=== PATIENT | male | born 1950 | race Caucasian/White ===

== ENCOUNTER 2019-03-26 10:44 | Inpatient (IN) ==
[2019-03-26 11:22] LABS: Basophils # (auto) 0.03 K/uL (0-0.2); Basophils % (auto) 0.4 %; Eosinophils % (auto) 4.9 %; Hematocrit (blood only) 46.2 % (42-52); Hemoglobin 15.7 g/dL (14.0-18.0); Immature Granulocytes # (auto) 0.01 K/uL (0.00-0.02); Immature Granulocytes % (auto) 0.1 %; Lymphocytes % (auto) 17.1 %; Mean Corpuscular Hemoglobin 33.8 pg (25-34); Mean Corpuscular Volume 99.4 fL (80-100); Mean Platelet Volume 10.5 fL (7.4-10.4); Monocytes # (auto) 0.88 K/uL (0.11-0.59); Monocytes % (auto) 10.7 %; Neutrophils # (auto) 5.48 K/uL (1.4-6.5); Neutrophils % (auto) 66.8 %; Platelet Count 216 K/uL (130-400); RDW Coefficient of Variation 13.2 % (11.5-14.5); RDW Standard Deviation 47.6 fL (36.4-46.3); Red Blood Count 4.65 M/uL (4.7-6.1)
[2019-03-26 11:29] LABS: Alanine Aminotransferase 25 U/L (12-78); Albumin Level 3.9 gm/dl (3.4-5.0); Aspartate Aminotransferase 17 U/L (15-37); BUN Creatinine Ratio 14.2 (10-20); Blood Urea Nitrogen 21 mg/dl (7-18); Calcium 9.7 mg/dl (8.5-10.1); Carbon Dioxide 27 mmol/L (21-32); Chloride 106 mmol/L (98-107); Est GFR (African American) 56.6; Est GFR (Non-African American) 48.9; Glucose 78 mg/dl (70-99); Lipase 199 U/L (73-393); Potassium 4.3 mmol/L (3.5-5.1); Sodium 140 mmol/L (136-145)
[2019-03-26 11:34] LABS: Alkaline Phosphatase 69 U/L (45-117); Bilirubin,Total 0.6 mg/dl (0.2-1); Globulin 3.9 gm/dl (2.5-4.0); Total Protein 7.8 gm/dl (6.4-8.2); Troponin I < 0.015 ng/ml (0-0.045)
--- NOTE | 2019-03-26 12:23 | XRay Report ---
SINGLE VIEW CHEST CLINICAL HISTORY: Atypical chest pain. FINDINGS: An AP, portable, upright chest radiograph is compared to study dated 10/07/2017. The examina tion is degraded by portable technique and patient rotation. The heart is enlarged noting atheroscler otic calcification of the thoracic aorta. The pulmonary vasculature is noncongested. There is mild el evation of the right hemidiaphragm and bibasilar atelectasis. No airspace consolidation or large pleu ral effusion is identified. No pneumothorax is seen. The skeletal structures are osteopenic. The bony thorax is grossly intact. Atherosclerotic calcification is noted in the carotid bulbs. IMPRESSION: Cardiomegaly with no acute cardiopulmonary abnormality. Electronically signed by: Aguilar Morse M.D. 03/26/2019 12:22 PM
--- NOTE | 2019-03-26 13:54 | History & Physical Report ---
Date of Service March 26, 2019 Assessment & Plan (1) Atrial fibrillation: Admit to PCU on telemetry Vital signs every 4 hours Started heparin drip with bolus for [place] jar[place]'s Patient should be switched if his insurance covers to apixaban or warfarin if it does not. Patient is covered by [place]. Metoprolol succinate increased to 25 daily instead of 12.5 for better angulation of [place]'s TTE pending Consult cardiology Added aspirin 81 mg to patient current regimen. 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 Started Solu-Medrol 30 twice daily IV and taper down Doxycycline 500 mg p.o. twice daily for 10 days Duo nebs every 4 hours while awake Symbicort 2 puffs twice a day Patient was advised to stop smoking given nicotine patch. Present on Admission?: Yes (3) HTN (hypertension): Stable. Continue home medicine amlodipine 10 mg p.o. every morning, lisinopril 20 mg p.o. every morning, metoprolol succinate 25 mg daily Present on Admission?: Yes (4) Hyperlipidemia: Lipid panel pending, continue atorvastatin 20 mg p.o. nightly. Present on Admission?: Yes (5) COPD exacerbation: Duo nebs every 4 Symbicort 2 puffs twice daily Solu-Medrol 30 mg IV twice daily Advised to stop smoking Given nicotine patch Present on Admission?: Yes (6) Peripheral vascular disease: Continue home medication cilostazol 100 mg p.o. twice daily. Present on Admission?: Yes (7) BPH (benign prostatic hyperplasia): Continue tamsulosin 0.4 mg capsule p.o. nightly. Present on Admission?: Yes (8) Discharge planning issues: Home when clinically improved and after cardiology recommendations. Patient will need help with anticoagulation medication and possibly follow-up. Present on Admission?: Yes History of Present Illness Chief Complaint: Shortness of breath and palpitations Primary Care Provider: Lauren Mcdonald Patient is a 68 years old male with past medical history of hypertension, hypercholesterolemia peripheral vascular disease, status post aortic bypass surgery 3 years ago and benign prostatic hypertrophy, smoker 1 pack/day for 50 years, presents to the emergency room with a complaint of shortness of breath for 2 to 3 days and palpitations. Patient said nothing helped it. He takes his medication regularly. He recently started to cough but it is not productive. He admits having wheezes. Patient denies fever, chills, headache, chest pain, abdominal pain, frequency, urgency, syncope, near syncope. Labs are reviewed: WBC is 8.2, hemoglobin 15.7, hematocrit 46.2, platelets 216, PT 10.9, INR 1.1, APTT 28, sodium 140, potassium 4.3, chloride 106, BUN 21, creatinine 1.44, GFR 48.9, troponin 0 0.015, TSH pending BNP pending. Chest x-rays cardiomegaly with acute pulmonary abnormality. Bibasilar atelectasis. Decision was made to admit patient to PCU for new onset of A. fib's and COPD exacerbation. Allergies Allergy/AdvReac Type Severity Reaction Status Date / Time No Known Allergies Allergy Unverified 03/26/19 11:38 Home Medications Home Medications Medication Instructions Recorded Confirmed Type amlodipine 10 mg tablet 10 mg PO QAM 01/04/18 03/26/19 History atorvastatin 40 mg tablet 20 mg PO QAM 01/04/18 03/26/19 History lisinopril 20 mg tablet 20 mg PO QAM 01/04/18 03/26/19 History metoprolol succinate 25 mg capsule 12.5 mg PO BID 01/04/18 03/26/19 History sprinkle, ext. release 24 hr tamsulosin 0.4 mg capsule 0.4 mg PO HS 01/04/18 03/26/19 History cilostazol 100 mg PO BID 09/02/18 03/26/19 History naproxen sodium [Aleve] 220 mg PO Q12H PRN 09/02/18 03/26/19 History Past Med/Surg History Medical History Heart disease (Chronic) HTN (hypertension) (Chronic) Skin problem (Chronic) Surgical History S/P appendectomy (Chronic) Social History Feels Safe at Home: Yes Smoking Status: Current every day smoker Review of Systems Review of Systems: All systems reviewed & are unremarkable except as noted in HPI & below Physical Exam Constitutional: WD/WN, vitals as above well developed Eyes: PERRL, conjunctivae normal, anicteric sclerae ENMT: external ear and nose normal, oropharynx normal Neck: trachea midline, no thyromegaly Respiratory: Auscultation: + crackles and + wheezes Cardiovascular: Rate/Rhythm: + irregularly irregular Heart Sounds: normal S1 and normal S2 Chest (Breasts): normal inspection/palpation of breasts Gastrointestinal (Abdomen): normal bowel sounds, soft, nontender, no hepatosplenomegaly Musculoskeletal: no cyanosis or clubbing, extremities motor strength 5/5 Skin: no rashes, warm and dry Neurologic: patellar DTR's 2+ bilat, sensation intact Psychiatric: A+Ox3, euthymic affect Lymphatic: no cervical or axillary lymphadenopathy Results & Data Vital Signs (Past 12 Hours) Vital Signs Temp Pulse Pulse Resp BP BP Pulse Ox 03/26/19 13:01 81 24 95 03/26/19 13:00 85 20 166/101 H 94 03/26/19 12:42 78 16 155/107 H 93 03/26/19 12:31 88 18 155/107 H 96 03/26/19 12:30 73 20 92 03/26/19 12:01 79 19 93 03/26/19 12:00 83 21 143/97 H 94 03/26/19 11:59 70 20 141/82 H 94 03/26/19 11:30 94 H 18 03/26/19 11:00 77 26 H 97 03/26/19 10:51 78 22 03/26/19 10:50 91 H 20 164/103 H 96 03/26/19 10:48 36.7 C 80 16 164/103 H 94 Code Status & VTE Plan Code Status Full code VTE Prophylaxis Plan VTE Prophylaxis will be ordered: Yes PG Care Time/CCT Total # of Minutes Spent Total Time Spent with Patient: Total time spent is greater than 50% in coordination of care (as documented) at patient's floor/unit and/or counseling patient:
--- NOTE | 2019-03-26 14:45 | Emergency Department Note ---
Entered by Precious Reddy acting as a scribe for History of Present Illness General Chief complaint: Cardiac Assessment Source: patient Mode of arrival: ambulatory Limitations: no limitations History of Present Illness Onset (ago): day(s) 1 Location: chest Radiation: non-radiation Pain Consistency: + constant Relieved By: + none Exacerbated By: + none Associated symptoms: + other (+swelling in the legs, -hematuria, -hematochezia, -melena); no chest pain, no nausea/vomiting and no shortness of breath Treatments prior to arrival: none The patient is a 68 year old male who presents to the ED with complaints of needing a cardiac assessment. He states he went [facility] for a regular check-up this morning and was referred here to the ED for an irregular heart beat and shortness and breath. He denies any recent chest pain, nausea, vomiting or diarrhea. He admits to swelling in his legs but states this is chronic. He does not take daily blood thinners. He denies any recent hematuria, hematochezia or melena. He notes that his shortness of breath has been worsening with exertion and the confirms this. He initially said that this is not the nathalia e but on repeat conversation notes that he has to stop even walking up small hills. Rest improves this. He notes that he is unsure of the timeframe for which this has occurred. No other exacerbating or remitting factors. Home Medications Home Medications Medication Instructions Recorded Confirmed Type amlodipine 10 mg tablet 10 mg PO QAM 01/04/18 03/26/19 History atorvastatin 40 mg tablet 20 mg PO QAM 01/04/18 03/26/19 History lisinopril 20 mg tablet 20 mg PO QAM 01/04/18 03/26/19 History metoprolol succinate 25 mg capsule 12.5 mg PO BID 01/04/18 03/26/19 History sprinkle, ext. release 24 hr tamsulosin 0.4 mg capsule 0.4 mg PO HS 01/04/18 03/26/19 History cilostazol 100 mg PO BID 09/02/18 03/26/19 History naproxen sodium [Aleve] 220 mg PO Q12H PRN 09/02/18 03/26/19 History Allergies Allergy/AdvReac Type Severity Reaction Status Date / Time No Known Allergies Allergy Unverified 03/26/19 11:38 Past Med/Surg History Medical History Heart disease (Chronic) HTN (hypertension) (Chronic) Skin problem (Chronic) Surgical History S/P appendectomy (Chronic) Social History Feels Safe at Home: Yes Smoking Status: Current every day smoker Review of Systems See HPI for pertinent positives & negatives. and A total of 10 systems reviewed and were otherwise negative Physical Exam Vital Signs Vital Signs - 24 hr 03/26/19 10:48 03/26/19 10:50 03/26/19 10:51 Temperature 36.7 C Temperature Source Oral Pulse Rate 80 91 H 78 Pulse Rate [Apical] Pulse Rate from SpO2 Sensor Pulse Rhythm Regular Pulse Strength Normal Respiratory Rate 16 20 22 Respiratory Effort / Characteristics Non-Labored Spontaneous Respiratory Depth Normal Respiratory Pattern Regular Blood Pressure 164/103 H 164/103 H Blood Pressure [Right Arm] Blood Pressure Mean 123 110 Blood Pressure Mean [Right Arm] Blood Pressure Position Lying Pulse Oximetry 94 96 Oxygen Delivery Method Room Air Room Air Sepsis Recent Fever Within 48 Hours No Sepsis New/Unexplained Change in Mental Status No Sepsis Action Taken by Nursing No Action Required 03/26/19 11:00 03/26/19 11:30 03/26/19 11:59 Temperature Temperature Source Pulse Rate 77 94 H 70 Pulse Rate [Apical] Pulse Rate from SpO2 Sensor 81 Pulse Rhythm Pulse Strength Respiratory Rate 26 H 18 20 Respiratory Effort / Characteristics Respiratory Depth Respiratory Pattern Blood Pressure 141/82 H Blood Pressure [Right Arm] Blood Pressure Mean 91 Blood Pressure Mean [Right Arm] Blood Pressure Position Pulse Oximetry 97 94 Oxygen Delivery Method Room Air Room Air Sepsis Recent Fever Within 48 Hours Sepsis New/Unexplained Change in Mental Status Sepsis Action Taken by Nursing 03/26/19 12:00 03/26/19 12:01 03/26/19 12:30 Temperature Temperature Source Pulse Rate 83 79 73 Pulse Rate [Apical] Pulse Rate from SpO2 Sensor 85 76 91 H Pulse Rhythm Pulse Strength Respiratory Rate 21 19 20 Respiratory Effort / Characteristics Respiratory Depth Respiratory Pattern Blood Pressure 143/97 H Blood Pressure [Right Arm] Blood Pressure Mean 110 Blood Pressure Mean [Right Arm] Blood Pressure Position Pulse Oximetry 94 93 92 Oxygen Delivery Method Room Air Room Air Room Air Sepsis Recent Fever Within 48 Hours Sepsis New/Unexplained Change in Mental Status Sepsis Action Taken by Nursing 03/26/19 12:31 03/26/19 12:42 03/26/19 13:00 Temperature Temperature Source Pulse Rate 88 85 Pulse Rate [Apical] 78 Pulse Rate from SpO2 Sensor 89 83 Pulse Rhythm Pulse Strength Respiratory Rate 18 16 20 Respiratory Effort / Characteristics Respiratory Depth Respiratory Pattern Blood Pressure 155/107 H 166/101 H Blood Pressure [Right Arm] 155/107 H Blood Pressure Mean 112 118 Blood Pressure Mean [Right Arm] 123 Blood Pressure Position Pulse Oximetry 96 93 94 Oxygen Delivery Method Room Air Room Air Room Air Sepsis Recent Fever Within 48 Hours Sepsis New/Unexplained Change in Mental Status Sepsis Action Taken by Nursing 03/26/19 13:01 03/26/19 13:30 03/26/19 13:31 Temperature Temperature Source Pulse Rate 81 80 84 Pulse Rate [Apical] Pulse Rate from SpO2 Sensor 82 88 116 H Pulse Rhythm Pulse Strength Respiratory Rate 24 20 16 Respiratory Effort / Characteristics Respiratory Depth Respiratory Pattern Blood Pressure 178/103 H Blood Pressure [Right Arm] Blood Pressure Mean 132 Blood Pressure Mean [Right Arm] Blood Pressure Position Pulse Oximetry 95 92 91 Oxygen Delivery Method Room Air Room Air Room Air Sepsis Recent Fever Within 48 Hours Sepsis New/Unexplained Change in Mental Status Sepsis Action Taken by Nursing 03/26/19 14:00 03/26/19 14:01 03/26/19 14:33 Temperature Temperature Source Pulse Rate 77 81 83 Pulse Rate [Apical] Pulse Rate from SpO2 Sensor 83 79 Pulse Rhythm Pulse Strength Respiratory Rate 20 13 18 Respiratory Effort / Characteristics Respiratory Depth Respiratory Pattern Blood Pressure 166/113 H 159/96 H Blood Pressure [Right Arm] Blood Pressure Mean 118 Blood Pressure Mean [Right Arm] Blood Pressure Position Pulse Oximetry 92 94 96 Oxygen Delivery Method Room Air Room Air Room Air Sepsis Recent Fever Within 48 Hours Sepsis New/Unexplained Change in Mental Status Sepsis Action Taken by Nursing GENERAL: Patient is chronically ill-appearing with hoarse voice, talking in full sentences, alert, well nourished, no distress, non-toxic EYE EXAM: normal conjunctiva, PERRL and EOM's grossly intact OROPHARYNX: no exudate, no erythema, lips, buccal mucosa, and tongue normal and mucous membranes are moist NECK: supple, no nuchal rigidity, no adenopathy, non-tender LUNGS: Clear to auscultation. Normal chest wall mechanics HEART: Irregularly irregular, no murmurs, S1 normal and S2 normal ABDOMEN: abdomen soft, non-tender, normo-active bowel sounds, no masses, no rebound or guarding. BACK: Back is symmetrical on inspection and there is no deformity, no midline tenderness, no CVA tenderness. SKIN: no rashes and no bruising UPPER EXTREMITIES: upper extremities are grossly normal. LOWER EXTREMITIES: No pitting edema. NEURO EXAM: Normal sensorium, cranial nerves II-XII grossly intact, normal speech, no gross weakness of arms, no gross weakness of legs. Gross sensation intact. Course Course ED COURSE: Vital signs were reviewed and showed the patient is hypertensive The patients medical record was reviewed The above diagnostic studies were performed and reviewed. ED treatments and interventions as stated above. 1108: The patient was evaluated in room B6. A complete history and physical examination was performed. 1127: [facility]: [facility] the [facility] The patient will be further evaluated. 1350: Upon reevaluation, the patient is resting comfortably. I discussed my findings with the patient and he understands and agrees with the treatment plan. Based on the patients age, coexisting illnesses, exam and lab findings the decision to treat as an inpatient was made. The patient remained stable while under my care. The patient will be evaluated for further management. Administered Medications Medical Decision Making Differential Diagnosis Differential diagnoses includes but is not limited to pneumonia, bronchitis, COPD/Asthma exacerbation, pneumothorax, pulmonary embolism, congestive heart failure, acute coronary syndrome Medical Records Attestation: I reviewed the patient's medical records. Home Medications Current Medication List: was personally reviewed by me Laboratory Data Attestation: I reviewed the patient's lab results. Result diagrams: 03/26/19 10:59 03/26/19 10:59 Lab Results 03/26/19 03/26/19 Range/Units 10:59 10:59 WBC 8.20 (4.8-10.8) K/uL RBC 4.65 L (4.7-6.1) M/uL Hgb 15.7 (14.0-18.0) g/dL Hct 46.2 (42-52) % MCV 99.4 (80-100) fL MCH 33.8 (25-34) pg MCHC 34.0 (32-36) g/dL RDW Std Deviation 47.6 H (36.4-46.3) fL RDW Coeff of David 13.2 (11.5-14.5) % Plt Count 216 (130-400) K/uL MPV 10.5 H (7.4-10.4) fL Immature Gran % (Auto) 0.1 % Neut % (Auto) 66.8 % Lymph % (Auto) 17.1 % [place] % (Auto) 10.7 % Eos % (Auto) 4.9 % Baso % (Auto) 0.4 % Immature Gran # (Auto) 0.01 (0.00-0.02) K/uL Neut # (Auto) 5.48 (1.4-6.5) K/uL Lymph # (Auto) 1.40 (1.2-3.4) K/uL [place] # (Auto) 0.88 H (0.11-0.59) K/uL Eos # (Auto) 0.40 (0-0.5) K/uL Baso # (Auto) 0.03 (0-0.2) K/uL Sodium 140 (136-145) mmol/L Potassium 4.3 (3.5-5.1) mmol/L Chloride 106 (98-107) mmol/L Carbon Dioxide 27 (21-32) mmol/L Anion Gap 6.0 (3-11) BUN 21 H (7-18) mg/dl Creatinine 1.44 H (0.6-1.4) mg/dl Est Cr Clr Drug Dosing 61.0 ml/min Est GFR ( Amer) 56.6 Est GFR (Non-Af Amer) 48.9 BUN/Creatinine Ratio 14.2 (10-20) Glucose 78 (70-99) mg/dl Calcium 9.7 (8.5-10.1) mg/dl Total Bilirubin 0.6 (0.2-1) mg/dl AST 17 (15-37) U/L ALT 25 (12-78) U/L Alkaline Phosphatase 69 (45-117) U/L Troponin I < 0.015 (0-0.045) ng/ml Total Protein 7.8 (6.4-8.2) gm/dl Albumin 3.9 (3.4-5.0) gm/dl Globulin 3.9 (2.5-4.0) gm/dl Albumin/Globulin Ratio 1.0 (0.9-2) Lipase 199 (73-393) U/L Imaging Data Radiologist's Impression: Radiology results as stated below per my review and the radiologist's interpretation: SINGLE VIEW CHEST CLINICAL HISTORY: Atypical chest pain. FINDINGS: An AP, portable, upright chest radiograph is compared to study dated 10/07/2017. The examination is degraded by portable technique and patient rotation. The heart is enlarged noting atherosclerotic calcification of the thoracic aorta. The pulmonary vasculature is noncongested. There is mild el evation of the right hemidiaphragm and bibasilar atelectasis. No airspace consolidation or large pleural effusion is identified. No pneumothorax is seen. The skeletal structures are osteopenic. The bony thorax is grossly intact. Atherosclerotic calcification is noted in the carotid bulbs. IMPRESSION: Cardiomegaly with no acute cardiopulmonary abnormality. Electronically signed by: Aguilar Morse M.D. 03/26/2019 12:22 PM ECG Data Attestation: I personally reviewed and interpreted this ECG as follows: Indication: + other (irregular heart beat) Rate (beats per minute): 85 Rhythm: + atrial fibrillation ECG Intervals/blocks: + Normal QT ECG Hulbert: + Normal ECG Findings: no PVCs Blood Pressure Blood Pressure Findings: Elevated blood pressure Blood Pressure Disposition: further management by hospitalist MDM Narrative Patient is a 68-year-old male that presents the ER referred in by PCP. His IV was established blood work was obtained shows no significant leukocytosis or anemia. BMP with a creatinine 1.44, LFTs bilirubin and troponin were unremarkable. Lipase is normal. Chest x-ray without any focal infiltrate. EKG confirms A. fib but no acute ischemic changes. He does have exertional shortness of breath. Discussed with her PCP. Will observe and discussed with the hospitalist due to the exertional shortness of breath and A. fib. Impression & Plan Atrial fibrillation, Dyspnea on exertion Discharge Plan Visit Data Chief Complaint: Cardiac Assessment ED Provider: Gael Morales Discharge Problem: Atrial fibrillation, Dyspnea on exertion Patient Disposition: Being Evaluated by Hospitalist Discharge Instructions Interventions: ED Discharge Assessment Last Done: 03/26/19 14:33 Discharge Problem: Atrial fibrillation Qualifiers: Atrial fibrillation type: unspecified Qualified Code(s): I48.91 - Unspecified atrial fibrillation The scribe's documentation has been prepared under my direction and personally reviewed by me in its entirety. I confirm that the note above accurately reflects all work, treatment, procedures, and medical decision making performed by me.
[2019-03-26] MEDS ORDERED: POLYETHYLENE (MIRALAX) 17 GM PACK PO PRN (15:01)
[2019-03-26] MEDS ORDERED: ALUMINUM/MAGNESIUM SUSP 30 ML UDC PO PRN (15:01)
[2019-03-26] MEDS ORDERED: ONDANSETRON INJ 2 MG/ML 2 ML VIAL IV PRN (15:01)
[2019-03-26] MEDS ORDERED: MAGNESIUM HYDROXIDE SUSP 30 ML UDC PO PRN (15:01)
[2019-03-26] MEDS ORDERED: ACETAMINOPHEN 325 MG TAB PO PRN (15:01)
[2019-03-26] MEDS ORDERED: ASPIRIN 81 MG ECTAB PO STA (15:18)
[2019-03-26 15:31] LABS: Basophils # (auto) 0.02 K/uL (0-0.2); Basophils % (auto) 0.2 %; Eosinophils % (auto) 4.5 %; Hematocrit (blood only) 45.9 % (42-52); Hemoglobin 15.6 g/dL (14.0-18.0); Immature Granulocytes # (auto) 0.01 K/uL (0.00-0.02); Immature Granulocytes % (auto) 0.1 %; Lymphocytes # (auto) 1.73 K/uL (1.2-3.4); Lymphocytes % (auto) 19.4 %; Mean Corpuscular Hemoglobin 33.9 pg (25-34); Mean Corpuscular Volume 99.8 fL (80-100); Mean Platelet Volume 10.7 fL (7.4-10.4); Monocytes # (auto) 0.99 K/uL (0.11-0.59); Monocytes % (auto) 11.1 %; Neutrophils # (auto) 5.78 K/uL (1.4-6.5); Neutrophils % (auto) 64.7 %; Platelet Count 215 K/uL (130-400); RDW Coefficient of Variation 13.1 % (11.5-14.5); RDW Standard Deviation 47.8 fL (36.4-46.3); White Blood Count 8.93 K/uL (4.8-10.8)
[2019-03-26] MEDS: ALBUT/IPRATROP 3MG/0.5MG NEB 3 ML VIAL NEB SCH ×3 (15:53→23:24)
[2019-03-26 15:54] LABS: Thyroid Stimulating Hormone 1.1 uIu/ml (0.300-4.500)
[2019-03-26] MEDS ORDERED: HEPARIN IV BOLUS 7,000 UNITS in SYRINGE 0 ML IV STA (15:56)
[2019-03-26 16:09] LABS: INR 1.1 (0.9-1.1); Partial Thromboplastin Time 28.2 Seconds (21.0-31.0); Prothrombin Time 10.9 Seconds (9.0-12.0)
[2019-03-26 16:25] LABS: Influenza A virus by PCR Neg for Influ A (Neg); Influenza B virus by PCR Neg for Influ B (Neg)
--- NOTE | 2019-03-26 16:31 | Cardiology Consultation ---
Date of Consultation March 26, 2019 Assessment & Plan (1) Atrial fibrillation: (2) PAD (peripheral artery disease): (3) Edema: (4) HTN (hypertension): (5) Mitral regurgitation: (6) Dyspnea on exertion: ASSESSMENT/PLAN: 1. Atrial fibrillation: Newly diagnosed today. He appears to be asymptomatic. Onset uncertain. Rate is well controlled on home dose of metoprolol succinate 25 mg. We discussed the diagnosis in detail. We discussed treatment strategies. Recommend conservative, rate control strategy given lack of symptoms and adequate rate control with low-dose beta-tristan. If he is noted to have increased heart rates, can further titrate beta-tristan as appropriate. Recommend anticoagulation for stroke risk reduction. He was agreeable. Currently written for heparin drip. Consider NOAC agent on discharge, if no contraindication. 2. Mitral regurgitation: Non severe. Can be followed as an outpatient by his primary provider's. 3. Dyspnea with exertion: He has been diagnosed by primary hospitalist with COPD exacerbation. He does have edema but otherwise clinically does not appear to be significantly intravascularly hypervolemic however exam is difficult. BNP is not significantly elevated and chest x-ray clear. Dyspnea with exertion is chronic and stable per his report. As per primary service. 4. PAD s/p bilateral aortofemoral bypass: Recommended that he ambulate more regularly to help encourage collateralization. Smoking cessation strongly recommended. Continue to follow with vascular surgery through the NH system in [place]. 5. Edema: Could be due to venous insufficiency, amlodipine, excessive sodium consumption. He does not appear to be significantly hypervolemic intravascularly. Consider replacing amlodipine with another agent to see edema improves, however this can be done as an outpatient through his regular providers. We discussed today the importance of a low-sodium diet. Keep feet elevated while sitting. Consider support stockings. 6. Hypertension: Blood pressure mildly elevated. Titrate medications as appr opriate if blood pressure remains elevated. 7. Disposition: From a cardiology standpoint, no further inpatient evaluation or treatment is necessary for his asymptomatic, rate controlled atrial fibri llation. He has dyspnea exertion has been present for years, and not likely attributable to his atrial fibrillation which was diagnosed today. [facility] arrange [facility]. I will V-wave in the hospital for the next 11 days. If any assistance is needed, please call the on-call retail security professional for [employer]. Thank you for allowing me to participate in the care of your patient. Please call for any other questions or concerns. Sincerely, Jasvir Hernandez M.D. History of Present Illness Reason for Consultation: Newly diagnosed atrial fibrillation Requesting Physician: Liat Frances MD Attending Physician: Liat Frances MD History of Present Illness Mr. Evans a very pleasant 68-year-old gentleman with a history significant for peripheral arterial disease status post bilateral aortofemoral bypass (2015 [facility]), hypertension, dyslipidemia, and presumed COPD. He was admitted for atrial fibrillation and COPD exacerbation. He follows with the NH in [place] and went there for a routine visit. While there, he was found to be in atrial fibrillation. He states that he was placed in an ambulance and brought to the emergency department for further evaluation. He had no new symptoms. He states that he has chronic dyspnea with exertion ever since his aorto femoral bypass in 2016. He is rather sedentary and bilateral lower extremity claudication is his most limiting symptom in regards to exertion. He cannot walk more than 25-35 yd before his claudication forces him to stop. Claudication is equal in both limbs. He also has chronic lower extremity edema. He states that he was placed on a diuretic in the past with no improvement and therefore no longer takes a diuretic. He has been on amlodipine. He admits that he consumes foods high in sodium content such as ham. He states that he eats a lot of ham. He denies shortness of breath at rest. He denies orthopnea or PND. He denies syncope, near-syncope, palpitations, chest discomfort, melena, hematochezia, hematuria, or other bleeding. He denies any recent fevers, chills, nausea, vomiting, abdominal pain, or diarrhea. He ambulates with a cane. Review of systems: As above. Review of systems otherwise negative/unremarkable. Family history: No known premature CAD. Social history: Smokes close to a pack of cigarettes per day and has smoked up to 2 packs per day. He has smoked for approximately 50 years. He is trying to cut back. He consumes 5-6 beers per day, a few days per month but not on a daily basis. He lives with his daughter. He is . He also has a son. He has grandchildren. 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 He served in the [employer]. Allergies Allergy/AdvReac Type Severity Reaction Status Date / Time No Known Allergies Allergy Unverified 03/26/19 11:38 Home Medications Home Medications Medication Instructions Recorded Confirmed Type amlodipine 10 mg tablet 10 mg PO QAM 01/04/18 03/26/19 History atorvastatin 40 mg tablet 20 mg PO QAM 01/04/18 03/26/19 History lisinopril 20 mg tablet 20 mg PO QAM 01/04/18 03/26/19 History metoprolol succinate 25 mg capsule 12.5 mg PO BID 01/04/18 03/26/19 History sprinkle, ext. release 24 hr tamsulosin 0.4 mg capsule 0.4 mg PO HS 01/04/18 03/26/19 History cilostazol 100 mg PO BID 09/02/18 03/26/19 History naproxen sodium [Aleve] 220 mg PO Q12H PRN 09/02/18 03/26/19 History Patient History Medical History BPH (benign prostatic hyperplasia) Edema HTN (hypertension) (Chronic) Hyperlipidemia Lumbar spinal stenosis (Chronic) PAD (peripheral artery disease) Skin problem (Chronic) Surgical History H/O aorto-femoral bypass S/P appendectomy (Chronic) Social History Preferred Language: Guatemalan Communication Ability: Effective Beliefs That Will Affect Care: None Current Living Situation: Family Feels Safe at Home: Yes Smoking Status: Current every day smoker Hx Alcohol Use: Yes Alcohol type: beer Hx Substance Use: No Physical Exam Physical Exam: Gen.: No acute distress. Alert and oriented. HEENT: Anicteric sclera. Neck: Thick neck but no appreciable JVD. Bilateral carotid bruit. Normal carotid upstrokes bilaterally. Cardiac: PMI was nonpalpable. No ventricular heave. Irregularly irregular, but normal rate. Normal S1-S2. No murmurs, rubs, or gallops. Pulmonary: Clear to auscultation bilaterally without wheezes, rales, or rhonchi. Abdomen: Soft, nontender, nondistended, with normoactive bowel sounds. No bruits noted. Extremities: 2+ radial pulses bilaterally. 1+ left dorsalis pedis pulse. Right dorsalis pedis pulse not detected. 1+ bilateral lower extremity edema. No cyanosis. Psychiatric: Affect appears appropriate. Results & Data Vital Signs (Past 12 Hours) Vital Signs Temp Pulse Pulse Resp BP BP Pulse Ox 03/26/19 14:33 83 18 159/96 H 96 03/26/19 14:01 81 13 94 03/26/19 14:00 77 20 166/113 H 92 03/26/19 13:31 84 16 91 03/26/19 13:30 80 20 178/103 H 92 03/26/19 13:01 81 24 95 03/26/19 13:00 85 20 166/101 H 94 03/26/19 12:42 78 16 155/107 H 93 03/26/19 12:31 88 18 155/107 H 96 03/26/19 12:30 73 20 92 03/26/19 12:01 79 19 93 03/26/19 12:00 83 21 143/97 H 94 03/26/19 11:59 70 20 141/82 H 94 03/26/19 11:30 94 H 18 03/26/19 11:00 77 26 H 97 03/26/19 10:51 78 22 03/26/19 10:50 91 H 20 164/103 H 96 03/26/19 10:48 36.7 C 80 16 164/103 H 94 Laboratory Results Laboratory Results - last 24 hr 03/26/19 03/26/19 03/26/19 10:59 10:59 15:07 WBC 8.20 RBC 4.65 L Hgb 15.7 Hct 46.2 MCV 99.4 MCH 33.8 MCHC 34.0 RDW Std Deviation 47.6 H RDW Coeff of David 13.2 Plt Count 216 MPV 10.5 H Immature Gran % (Auto) 0.1 Neut % (Auto) 66.8 Lymph % (Auto) 17.1 [place] % (Auto) 10.7 Eos % (Auto) 4.9 Baso % (Auto) 0.4 Immature Gran # (Auto) 0.01 Neut # (Auto) 5.48 Lymph # (Auto) 1.40 [place] # (Auto) 0.88 H Eos # (Auto) 0.40 Baso # (Auto) 0.03 PT INR APTT PTT Ratio Sodium 140 Potassium 4.3 Chloride 106 Carbon Dioxide 27 Anion Gap 6.0 BUN 21 H Creatinine 1.44 H Est Cr Clr Drug Dosing 61.0 Est GFR ( Amer) 56.6 Est GFR (Non-Af Amer) 48.9 BUN/Creatinine Ratio 14.2 Glucose 78 Calcium 9.7 Total Bilirubin 0.6 AST 17 ALT 25 Alkaline Phosphatase 69 Troponin I < 0.015 NT-Pro-B Natriuret Pep 857 Total Protein 7.8 Albumin 3.9 Globulin 3.9 Albumin/Globulin Ratio 1.0 Lipase 199 Procalcitonin TSH 1.100 U Nicotine Metabolite Influenza Type A (PCR) Influenza Type B (PCR) 03/26/19 03/26/19 03/26/19 15:07 15:07 15:07 WBC 8.93 RBC 4.60 L Hgb 15.6 Hct 45.9 MCV 99.8 MCH 33.9 MCHC 34.0 RDW Std Deviation 47.8 H RDW Coeff of David 13.1 Plt Count 215 MPV 10.7 H Immature Gran % (Auto) 0.1 Neut % (Auto) 64.7 Lymph % (Auto) 19.4 [place] % (Auto) 11.1 Eos % (Auto) 4.5 Baso % (Auto) 0.2 Immature Gran # (Auto) 0.01 Neut # (Auto) 5.78 Lymph # (Auto) 1.73 [place] # (Auto) 0.99 H Eos # (Auto) 0.40 Baso # (Auto) 0.02 PT 10.9 INR 1.1 APTT 28.2 PTT Ratio 1.0 Sodium Potassium Chloride Carbon Dioxide Anion Gap BUN Creatinine Est Cr Clr Drug Dosing Est GFR ( Amer) Est GFR (Non-Af Amer) BUN/Creatinine Ratio Glucose Calcium Total Bilirubin AST ALT Alkaline Phosphatase Troponin I NT-Pro-B Natriuret Pep Total Protein Albumin Globulin Albumin/Globulin Ratio Lipase Procalcitonin 0.05 TSH U Nicotine Metabolite Influenza Type A (PCR) Influenza Type B (PCR) 03/26/19 03/26/19 15:20 15:28 WBC RBC Hgb Hct MCV MCH MCHC RDW Std Deviation RDW Coeff of David Plt Count MPV Immature Gran % (Auto) Neut % (Auto) Lymph % (Auto) [place] % (Auto) Eos % (Auto) Baso % (Auto) Immature Gran # (Auto) Neut # (Auto) Lymph # (Auto) [place] # (Auto) Eos # (Auto) Baso # (Auto) PT INR APTT PTT Ratio Sodium Potassium Chloride Carbon Dioxide Anion Gap BUN Creatinine Est Cr Clr Drug Dosing Est GFR ( Amer) Est GFR (Non-Af Amer) BUN/Creatinine Ratio Glucose Calcium Total Bilirubin AST ALT Alkaline Phosphatase Troponin I NT-Pro-B Natriuret Pep Total Protein Albumin Globulin Albumin/Globulin Ratio Lipase Procalcitonin TSH U Nicotine Metabolite Pending Influenza Type A (PCR) Neg for Influ A Influenza Type B (PCR) Neg for Influ B Diagnostic Findings ECG personally reviewed: ECG 03/26/2019: AFib 85 bpm. Possible septal infarct. Echocardiogram 03/26/2019 personally reviewed at the bedside: Preliminary review demonstrated normal LV systolic function. Non severe mitral regurgitatio n. Formal review to follow. Chest x-ray 03/26/2019: Cardiomegaly. No acute cardiopulmonary abnormality per Radiology. Medications Administered Current Inpatient Medications Acetaminophen (Tylenol) 650 mg PO Q4H PRN PRN Reason: Pain or Fever Stop: 04/25/19 15:00 Al Hydrox/Mg Hydrox/Simethicone (Maalox) 15 ml PO Q4H PRN PRN Reason: Dyspepsia Stop: 04/25/19 15:00 Albuterol (Duoneb) 3 ml NEB Q4R [facility] Stop: 04/25/19 15:59 Last Admin: 03/26/19 15:53 Dose: Not Given Documented by: Amlodipine Besylate (Norvasc) 10 mg PO DAILY@1000 [facility] Stop: 04/25/19 15:59 Atorvastatin Calcium (Lipitor) 20 mg PO DAILY@1000 [facility] Stop: 04/26/19 09:59 Budesonide/Formoterol Fumarate (Symbicort 160mcg/4.5mcg) 2 puffs INH BID [facility] Stop: 04/25/19 20:59 Cilostazol (Pletal) 100 mg PO BID [facility] Stop: 04/25/19 20:59 Doxycycline Hyclate (Vibramycin) 100 mg PO BID [facility] Stop: 04/02/19 20:59 Heparin Sodium/Dextrose (Heparin Sodium/Dextrose) 25,000 units in 500 mls @ 31 mls/hr IV .Q16H8M [facility]; Protocol Stop: 04/25/19 15:00 Methylprednisolone 30 mg/ (Syringe) 0.48 mls @ 1.5 mls/min IV BID [facility] Stop: 04/25/19 15:59 Lisinopril (Zestril) 20 mg PO DAILY@1000 [facility] Stop: 04/25/19 15:59 Magnesium Hydroxide (Milk Of Magnesia) 30 ml PO Q12H PRN PRN Reason: Constipation Stop: 04/25/19 15:00 Metoprolol Succinate (Toprol Xl) 25 mg PO QAM [facility] Stop: 04/26/19 15:59 Miscellaneous (Remove Nicoderm Patch) 1 ea N/A DAILY@0859 [facility] Stop: 04/27/19 08:58 Nicotine (Nicoderm Cq) 14 mg TD QAM [facility] Stop: 04/26/19 08:59 Ondansetron HCl (Zofran) 4 mg IV Q6H PRN PRN Reason: Nausea Stop: 04/25/19 15:00 Polyethylene Glycol (Miralax Powder Packet) 17 gm PO DAILY PRN PRN Reason: Constipation Stop: 04/25/19 15:00 Tamsulosin HCl (Flomax) 0.4 mg PO HS [facility] Stop: 04/25/19 20:59 PG Care Time/CCT Total # of Minutes Spent Total Time Spent with Patient: Total time spent is greater than 50% in coordination of care (as documented) at patient's floor/unit and/or counseling patient: (1) Atrial fibrillation Atrial fibrillation type: unspecified Qualified Code(s): I48.91 - Unspecified atrial fibrillation
[2019-03-26] MEDS: HEPARIN SODIUM/DEXTROSE 25,000 UNITS/500 ML BAG IV SCH (17:21)
[2019-03-26] MEDS: methylPREDNISolone 30 MG in SYRINGE 0 ML IV SCH (17:22)
[2019-03-26] MEDS: AMLODIPINE BESYLATE 5 MG TAB PO SCH (17:23)
[2019-03-26] MEDS: LISINOPRIL 20 MG TAB PO SCH (17:23)
[2019-03-26] MEDS: BUDESONIDE/FORMOTEROL FUMARATE 160/4.5 60 PUFFS/INHALER INH SCH (20:58)
[2019-03-26] MEDS: DOXYCYCLINE HYCLATE 100 MG CAP PO SCH (20:58)
[2019-03-26] MEDS: CILOSTAZOL 100 MG TAB PO SCH (20:58)
[2019-03-26] MEDS ORDERED: TAMSULOSIN HCL 0.4 MG CAP PO SCH (21:00)
[2019-03-26 23:33] LABS: Partial Thromboplastin Ratio 2.8
[2019-03-26] MEDS ORDERED: METOPROLOL SUCC 25MG EXT REL TAB PO STA (23:46)
[2019-03-26 23:47] LABS: Partial Thromboplastin Time 75.2 Seconds (21.0-31.0)
[2019-03-26] MEDS ORDERED: METOPROLOL TARTRATE 1 MG/ML VIAL IV STA (23:48)
[2019-03-27] MEDS: ALBUT/IPRATROP 3MG/0.5MG NEB 3 ML VIAL NEB SCH ×2 (04:03→07:23)
[2019-03-27 04:11] VITALS: O2SAT 95
[2019-03-27 06:29] LABS: Hematocrit (blood only) 44.6 % (42-52); Hemoglobin 14.9 g/dL (14.0-18.0); Immature Granulocytes # (auto) 0.02 K/uL (0.00-0.02); Immature Granulocytes % (auto) 0.2 %; Lymphocytes # (auto) 0.74 K/uL (1.2-3.4); Lymphocytes % (auto) 8.7 %; Mean Corpuscular Hgb Conc 33.4 g/dL (32-36); Mean Corpuscular Volume 98.7 fL (80-100); Mean Platelet Volume 10.7 fL (7.4-10.4); Monocytes # (auto) 0.41 K/uL (0.11-0.59); Monocytes % (auto) 4.8 %; Neutrophils % (auto) 86.3 %; Platelet Count 241 K/uL (130-400); RDW Coefficient of Variation 13.1 % (11.5-14.5); RDW Standard Deviation 47.3 fL (36.4-46.3); Red Blood Count 4.52 M/uL (4.7-6.1); White Blood Count 8.47 K/uL (4.8-10.8)
[2019-03-27 06:45] LABS: Partial Thromboplastin Ratio 2.2
[2019-03-27 06:48] LABS: Partial Thromboplastin Time 59.4 Seconds (21.0-31.0)
[2019-03-27 07:03] LABS: Albumin Level 3.5 gm/dl (3.4-5.0); BUN Creatinine Ratio 15.3 (10-20); Calcium 9.3 mg/dl (8.5-10.1); Creatinine Clr Calc Pharmacy 54.7 ml/min; Est GFR (African American) 52.2; Potassium 4.3 mmol/L (3.5-5.1)
[2019-03-27 07:06] LABS: Albumin Globulin Ratio 0.9 (0.9-2); Bilirubin,Total 0.6 mg/dl (0.2-1); Globulin 3.8 gm/dl (2.5-4.0); Total Protein 7.3 gm/dl (6.4-8.2)
[2019-03-27 07:25] VITALS: TEMP 98.2
[2019-03-27] MEDS: HEPARIN SODIUM/DEXTROSE 25,000 UNITS/500 ML BAG IV SCH (08:21)
[2019-03-27] MEDS: BUDESONIDE/FORMOTEROL FUMARATE 160/4.5 60 PUFFS/INHALER INH SCH (08:53)
[2019-03-27] MEDS: LISINOPRIL 20 MG TAB PO SCH (08:54)
[2019-03-27] MEDS: DOXYCYCLINE HYCLATE 100 MG CAP PO SCH (08:54)
[2019-03-27] MEDS: CILOSTAZOL 100 MG TAB PO SCH (08:54)
[2019-03-27] MEDS: methylPREDNISolone 30 MG in SYRINGE 0 ML IV SCH (08:55)
[2019-03-27] MEDS ORDERED: AMLODIPINE BESYLATE 5 MG TAB PO SCH (09:00)
[2019-03-27] MEDS ORDERED: NICOTINE 14 MG/24 HR PATCH TD SCH (09:00)
[2019-03-27] MEDS ORDERED: LISINOPRIL 20 MG TAB PO SCH (10:00)
[2019-03-27] MEDS ORDERED: ATORVASTATIN 20 MG TAB PO SCH (10:00)
[2019-03-27] MEDS ORDERED: METOPROLOL SUCC 25MG EXT REL TAB PO STA (10:18)
[2019-03-27] MEDS: AMLODIPINE BESYLATE 5 MG TAB PO SCH (10:18)
[2019-03-27] MEDS ORDERED: Nursing to Pharmacy Communication ONE (10:33)
[2019-03-27] MEDS ORDERED: APIXABAN 5 MG TABLET PO SCH ×2 (10:45)
[2019-03-27 11:04] VITALS: BP 136/83
[2019-03-27 11:22] VITALS: PULSE 101
--- NOTE | 2019-03-27 12:28 | Discharge Summary ---
Date of Service March 27, 2019 Admission HPI Per Admitting Provider Patient is a 68 years old male with past medical history of hypertension, hypercholesterolemia peripheral vascular disease, status post aortic bypass surgery 3 years ago and benign prostatic hypertrophy, smoker 1 pack/day for 50 years, presents to the emergency room with a complaint of shortness of breath for 2 to 3 days and palpitations. Patient said nothing helped it. He takes his medication regularly. He recently started to cough but it is not productive. He admits having wheezes. Patient denies fever, chills, headache, chest pain, abdominal pain, frequency, urgency, syncope, near syncope. Labs are reviewed: WBC is 8.2, hemoglobin 15.7, hematocrit 46.2, platelets 216, PT 10.9, INR 1.1, APTT 28, sodium 140, potassium 4.3, chloride 106, BUN 21, creatinine 1.44, GFR 48.9, troponin 0 0.015, TSH pending BNP pending. Chest x-rays cardiomegaly with acute pulmonary abnormality. Bibasilar atelectasis. Decision was made to admit patient to PCU for new onset of A. fib's and COPD exacerbation. Principal Diagnosis New onset atrial fibrillation Discharge Exam Constitutional WD/WN, vitals as above Eyes PERRL, conjunctivae normal, anicteric sclerae ENMT external ear and nose normal, oropharynx normal Neck trachea midline, no thyromegaly Respiratory normal respiratory effort; no respiratory distress Auscultation: + diminished lung sounds and + rhonchi (scattered); no crackles, no rales and no wheezes Cardiovascular Rate/Rhythm: + tachycardic (100's) and + irregularly irregular Heart Sounds: normal S1 and normal S2; no murmur Extremities: normal capillary refill; no edema Gastrointestinal (Abdomen) normal bowel sounds, soft, nontender, no hepatosplenomegaly Musculoskeletal no cyanosis or clubbing, extremities motor strength 5/5 Skin no rashes, warm and dry Neurologic patellar DTR's 2+ bilat, sensation intact and PERRL, EOMI, accommodation nl, no face palsy, no dysarthria Psychiatric A+Ox3, euthymic affect Lymphatic no cervical or axillary lymphadenopathy Discharge Data Allergies Allergy/AdvReac Type Severity Reaction Status Date / Time No Known Allergies Allergy Unverified 03/26/19 11:38 Consultations 03/26/19 12:49 ED Decision to Admit Stat 03/26/19 15:01 Consult Cardiology Routine Consult Case Management - Discharge Planning Routine Hospital Course (1) Atrial fibrillation: new onset, rates better controlled by increasing Toprol will d/c on Toprol 25mg BID (was taking 12.5mg BID) may potentially need higher dosing at 50mg BID, will follow up with [facility] on 04/02 treated initially with heparin drip, transitioned to Eliquis 5mg BID gave him a weeks worth of medication because he is [facility] patient with no part D coverage, a month supply would be > $400 from [facility], he assures me he can get it from [facility] at no cost, gave him paper script to take with him echocardiogram with preserved EF instructed to rest, no strenuous activity until he sees cardiology on 04/02 again, Toprol 25mg BID and Eliquis 5mg BID (2) Dyspnea on exertion: mild COPD exacerbation. treated with Solu-Medrol 30 twice daily IV d/c home on 5 days of Prednisone and Doxycycline (3) COPD exacerbation: mild, he says he always has a "smoker's cough" and some dyspnea admits that he has slightly more sputum production d/c home on Prednisone 40mg daily x 5 days Doxycycline 100mg BID x 5 days follow up with PCP (4) HTN (hypertension): Stable. Continue home medicine amlodipine 10 mg p.o. every morning, lisinopril 20 mg p.o. every morning, metoprolol succinate 25 mg BID (5) Hyperlipidemia: continue atorvastatin 20 mg p.o. nightly. (6) Peripheral vascular disease: Continue home medication cilostazol 100 mg p.o. twice daily. (7) BPH (benign prostatic hyperplasia): Continue tamsulosin 0.4 mg capsule p.o. nightly. Total Time Total Time Spent Total Time Spent (In Minutes): 60 minutes Total Time Includes: Examination of the Patient, Discharge Planning, Medication Reconciliation, Communication With Other Providers (several phone calls to local pharmacies to figure out Eliquis script) and Other (multiple talks with patient and family about d/c plan) Discharge Plan Discharge Items Patient Disposition: Home - Self-Care Reason For Visit: NEW ONSET OF AFIBS,COPD EXACERBATION Discharge Diagnosis: New onset atrial fibrillation COPD exacerbation Condition on Discharge: Good Goals: improve disease control with atrial fibrillation 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 Activity: Resume your previous activity Non-emergency contact: Primary Care Provider and Pantograph Machine Operator Call non-emergency contact if: you have any medication questions, your symptoms worsen and you have a fever Follow-up/Referrals: Lauren Mcdonald PA-C [Primary Care Provider] - Diet: Heart Healthy Addtl Attending Provider Instructions: Medications: - ABIXABAN: 5mg twice a day, will give you a written script, our pharmacy will release you enough to take until morning on 04/02/19 - TOPROL: dose increased to 25mg twice a day from 12.5mg twice a day, you received an extra 25mg this morning - PREDNISONE: take 40mg daily for 5 days, start tomorrow AM - DOXYCYCLINE: take 100mg twice a day for 10 doses, next dose due this evening Atrial fibrillation new onset of this arrhythmia, standard treatment is heart rate control and anticoagulation will increase your Toprol from 12.5mg to 25mg twice a day will start anticoagulation with Eliquis, will give you a weeks worth, take script to the [facility] please 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 [employer], Smoking Cessation Medications and DC Order Prescriptions: New doxycycline hyclate 100 mg Capsule 100 mg PO BID 5 Days Qty: 10 RF: 0 apixaban 5 mg tablet 5 mg PO BID 30 Days Qty: 60 RF: 0 metoprolol succinate 25 mg Tablet Extended Release 24 Hr 25 mg PO BID 30 Days Qty: 60 RF: 0 prednisone 20 mg tablet 40 mg PO DAILY 5 Days Qty: 10 RF: 0 Continued atorvastatin 40 mg tablet 20 mg PO QAM RF: 0 lisinopril 20 mg tablet 20 mg PO QAM RF: 0 tamsulosin 0.4 mg capsule 0.4 mg PO HS RF: 0 amlodipine 10 mg tablet 10 mg PO QAM RF: 0 cilostazol 100 mg Tablet 100 mg PO BID RF: 0 naproxen sodium [Aleve] 220 mg Tablet 220 mg PO Q12H PRN (Reason: Pain) RF: 0 Discontinued metoprolol succinate 25 mg capsule,micah,ER 24hr 12.5 mg PO BID RF: 0 Discharge Orders: Discharge Order (Routine); Ordered 03/27/19 Ordered By: Iván Horowitz Admission Data Admit Date/Time: 03/26/19 13:49 Attending Provider: Iván Horowitz Admit Provider: Liat Frances Primary Care Provider: Lauren Mcdonald Other Providers: Liat Frances ; Tommy Hernandez Other Interventions: Discharge Summary Assessment (RN) Last Done: 03/27/19 11:18 DC Date/Time DO NOT enter until pt leaves facility: 03/27/19 11:49
[2019-03-27] MEDS ORDERED: METOPROLOL SUCC 25MG EXT REL TAB PO SCH (16:00)
[2019-03-27] MEDS ORDERED: methylPREDNISolone 30 MG in SYRINGE 0 ML IV SCH (21:00)
== END 2019-03-27 11:49 | disposition home or self-care (01) | DRG 309 ==
LOC: ED 10:44 → 2S 13:49 → SUATTDRO 13:49 → 2S 14:33

== ENCOUNTER 2020-12-07 05:26 | Inpatient (IN) ==
[2020-12-07] MEDS ORDERED: METOPROLOL TARTRATE 1 MG/ML VIAL IV STA (05:34)
[2020-12-07] MEDS ORDERED: SODIUM CHLORIDE 0.9% 1000ML 500 ML IV ONE (05:34)
[2020-12-07] MEDS ORDERED: GI COCKTAIL ED USE PO ONE (05:41)
--- NOTE | 2020-12-07 05:41 | Emergency Department Note ---
History of Present Illness General Chief complaint: Chest Pain Stated complaint: CHEST PAIN Time Seen by Provider: 12/07/20 05:28 History of Present Illness This is a 70-year-old male presenting to the emergency department via EMS from home for evaluation of left-sided chest wall pain. The patient does have a h istory of A. fib and is on Eliquis. His symptoms began about 1 to 2 hours prior to arrival. He did get aspirin and nitroglycerin prehospital, and this seemed to help his discomfort from a 7/10 to a /10. He does not feel like he is having difficulty breathing. No fevers or chills. He did get vaccinated against Covid. He does have history of angina and follows with the [facility]. Home Medications Medication Instructions Recorded Confirmed Type albuterol sulfate 90 mcg/actuation 2 puffs INH Q6H PRN 08/19/19 12/07/20 History breath activated powder inhaler apixaban 5 mg tablet (Eliquis) 5 mg PO BID 08/19/19 12/07/20 History budesonide-formoterol HFA 160 2 puffs INH Q12H 08/19/19 12/07/20 History mcg-4.5 mcg/actuation aerosol inhaler (Symbicort) calcium carbonate 600 mg calcium 600 mg PO QPM 09/24/19 12/07/20 History (1,500 mg) tablet (Calcium) tamsulosin 0.4 mg capsule 0.4 mg PO HS cap 10/06/19 12/07/20 History metoprolol succinate 50 mg 25 mg PO QAM 01/08/20 12/07/20 History tablet,extended release 24 hr rosuvastatin 40 mg tablet 20 mg PO QAM 01/08/20 12/07/20 History pantoprazole 40 mg tablet,delayed 40 mg PO DAILY 12/07/20 12/07/20 History release Allergies Allergy/AdvReac Type Severity Reaction Status Date / Time No Known Allergies Allergy Verified 12/07/20 07:15 Past Med/Surg History Medical History (Updated 12/07/20 @ 07:37 by Kenton Kathleen PA-C) Anemia Angina at rest Atrial fibrillation on eliquis, follows with [facility] BPH (benign prostatic hyperplasia) Chronic anticoagulation on eliquis daily COPD exacerbation inhaler daily/prn Diverticulosis Dyspnea on exertion Edema Fall a year & a half ago 2018, bruised a bone right hip HTN (hypertension) Hyperlipidemia Lumbar spinal stenosis Mitral regurgitation PAD (peripheral artery disease) Prostate cancer diagnosed 06/2019--currently receiving radiation tx PVD (peripheral vascular disease) Surgical History History of hxrtf-fwmyd-pcdtkut bypass appx 2015 [facility] History of colonoscopy with polypectomy recent 09/2019 History of esophagogastroduodenoscopy (EGD) recent 09/2019 History of mandibular surgery jaw fx History of open reduction and internal fixation (ORIF) procedure right ankle 1968---hardware in place History of prostate biopsy malignant S/P appendectomy appx 1998 S/P TURP (transurethral resection of prostate) Family History Mother Dementia age 89 Father , age 94 of old age. No problems noted. Brother No problems noted. Brother No problems noted. Daughter No problems noted. Son Diabetes Other No family history of adverse response to anesthesia Denies family history of Crohn's disease Colorectal cancer Ulcerative colitis Social History Smoking Status: Current every day smoker Age Started Using Tobacco: 12; packs per day: 0.5; Years Smoked: 56; Cigarettes Per Day: 10 a day; Second Hand Exposure: No; Hx Alcohol Use: Yes Alcohol type: beer Hx Substance Use: No Preferred Language: Togolese Communication Ability: Effective Visual Impairment: Limited Hearing Ability: Normal Machine Specialist Required: No Beliefs That Will Affect Care: None marital status: Current Living Situation: Family Current Living Situation Comment: Lives with daughter current occupational status: retired current occupation: [employer] Feels Safe at Home: Yes Childhood Exposure to Second-Hand Smoke: Yes caffeine: Yes (3 cups of coffee daily) during the past year weight has: remained stable Dental Care, Regularly: No Assistive Devices: Denture - Upper and Glasses Review of Systems A total of 10 systems reviewed and were otherwise negative Physical Exam Vital Signs Vital Signs - 24 hr 12/07/20 05:30 12/07/20 06:00 12/07/20 07:20 Temperature 37.1 C Temperature Source Oral Pulse Rate 102 H 104 H Pulse Rate [Apical] 105 H Respiratory Rate 22 22 18 Respiratory Effort / Characteristics Non-Labored Spontaneous Respiratory Depth Normal Respiratory Pattern Regular Blood Pressure 156/85 H 133/91 Blood Pressure [Right Arm] 123/77 Blood Pressure Mean 108 105 Blood Pressure Mean [Right Arm] 92 Blood Pressure Position Lying Pulse Oximetry 94 96 96 Oxygen Delivery Method Nasal Cannula Nasal Cannula Nasal Cannula Oxygen Flow Rate 2 2 2 Sepsis Recent Fever Within 48 Hours No Sepsis New/Unexplained Change in Mental Status N/A Sepsis Action Taken by Nursing No Action Required VITALS: Vitals are noted on the nurse's note and reviewed by myself. Vital signs with mild tachycardia. He is 88% on room air. GENERAL: Well-developed, well-nourished, white male, who is in no acute distress and resting comfortably. Patient is cooperative with the examination. HEAD: Normocephalic atraumatic. HEART: Irregularly irregular LUNGS: Clear to auscultation bilaterally without wheezes, rales or rhonchi. No retractions or accessory muscle use. ABDOMEN: Positive normal bowel sounds x 4. Soft, nontender, without masses or organomegaly. MUSCULOSKELETAL: No muscle atrophy, erythema, or edema noted. Full range of motion in all extremities. NEURO: Patient was alert and oriented to person place and time. CN II through XII grossly intact. No focal neurological deficits. Course Administered Medications Discontinued Medications Al Hydrox/Mg Hydrox/Simethicone (Gi Cocktail Ed Use) 1 dose PO ONE ONE Stop: 12/07/20 05:42 Last Admin: 12/07/20 05:55 Dose: 1 dose Documented by: [id number] Sodium Chloride (Nss 1000ml) 500 mls @ 999 mls/hr IV .Q31M ONE Stop: 12/07/20 06:04 Last Infusion: 12/07/20 06:26 Dose: 0 mls/hr Documented by: [id number] Admin: 12/07/20 05:55 Dose: 999 mls/hr Documented by: [id number] Metoprolol Tartrate (Metoprolol Tartrate 1 Mg/Ml Vial) 5 mg IV NOW STA Stop: 12/07/20 05:35 Last Admin: 12/07/20 05:54 Dose: 5 mg Documented by: [id number] Medical Decision Making Differential Diagnosis Differential diagnosis includes, but is not limited to: Myocardial infarction, dysrhythmia, pericarditis, pneumothorax, aortic aneurysm/dissection, DVT/PE, anxiety, GERD, PUD, electrolyte imbalance, thyroid disorder, pneumonia, bronchitis, pancreatitis, and others Laboratory Data Result diagrams: 12/07/20 05:00 12/07/20 05:00 Lab Results 12/07/20 12/07/20 12/07/20 Range/Units 05:00 05:00 05:00 WBC 9.50 (4.8-10.8) K/uL RBC 4.42 L (4.7-6.1) M/uL Hgb 14.2 (14.0-18.0) g/dL Hct 43.0 (42-52) % MCV 97.3 (80-100) fL MCH 32.1 (25-34) pg MCHC 33.0 (32-36) g/dL RDW Std Deviation 50.7 H (36.4-46.3) fL RDW Coeff of David 14.2 (11.5-14.5) % Plt Count 235 (130-400) K/uL MPV 9.9 (7.4-10.4) fL Immature Gran % (Auto) 0.2 % Neut % (Auto) 72.0 % Lymph % (Auto) 8.7 % Sharp % (Auto) 17.3 % Eos % (Auto) 1.6 % Baso % (Auto) 0.2 % Neut # (Auto) 6.84 H (1.4-6.5) K/uL Lymph # (Auto) 0.83 L (1.2-3.4) K/uL Sharp # (Auto) 1.64 H (0.11-0.59) K/uL Eos # (Auto) 0.15 (0-0.5) K/uL Baso # (Auto) 0.02 (0-0.2) K/uL Immature Gran # (Auto) 0.02 (0.00-0.02) K/uL PT 10.4 (9.0-12.0) Seconds INR 1.0 (0.9-1.1) APTT 32.3 H (21.0-31.0) Seconds PTT Ratio 1.2 Sodium 131 L (136-145) mmol/L Potassium 4.3 (3.5-5.1) mmol/L Chloride 102 (98-107) mmol/L Carbon Dioxide 30 (21-32) mmol/L Anion Gap -1.0 L (3-11) BUN 13 (7-18) mg/dl Creatinine 0.94 (0.6-1.4) mg/dl Est Cr Clr Drug Dosing 91.4 ml/min Est GFR ( Amer) 93.5 ml/min Est GFR (Non-Af Amer) 80.7 ml/min BUN/Creatinine Ratio 13.3 (10-20) Glucose 108 H (70-99) mg/dl Calcium 9.3 (8.5-10.1) mg/dl Magnesium 1.9 (1.8-2.4) mg/dl Total Bilirubin 0.5 (0.2-1) mg/dl AST 16 (15-37) U/L ALT 30 (12-78) U/L Alkaline Phosphatase 81 (45-117) U/L Troponin I < 0.015 (0-0.045) ng/ml Total Protein 7.5 (6.4-8.2) gm/dl Albumin 3.5 (3.4-5.0) gm/dl Globulin 4.0 (2.5-4.0) gm/dl Albumin/Globulin Ratio 0.9 (0.9-2) Lipase 144 (73-393) U/L COVID-19 Eval Order SARS-CoV-2 (PCR) (Negative) 12/07/20 12/07/20 Range/Units 06:01 06:01 WBC (4.8-10.8) K/uL RBC (4.7-6.1) M/uL Hgb (14.0-18.0) g/dL Hct (42-52) % MCV (80-100) fL MCH (25-34) pg MCHC (32-36) g/dL RDW Std Deviation (36.4-46.3) fL RDW Coeff of David (11.5-14.5) % Plt Count (130-400) K/uL MPV (7.4-10.4) fL Immature Gran % (Auto) % Neut % (Auto) % Lymph % (Auto) % Sharp % (Auto) % Eos % (Auto) % Baso % (Auto) % Neut # (Auto) (1.4-6.5) K/uL Lymph # (Auto) (1.2-3.4) K/uL Sharp # (Auto) (0.11-0.59) K/uL Eos # (Auto) (0-0.5) K/uL Baso # (Auto) (0-0.2) K/uL Immature Gran # (Auto) (0.00-0.02) K/uL PT (9.0-12.0) Seconds INR (0.9-1.1) APTT (21.0-31.0) Seconds PTT Ratio Sodium (136-145) mmol/L Potassium (3.5-5.1) mmol/L Chloride (98-107) mmol/L Carbon Dioxide (21-32) mmol/L Anion Gap (3-11) BUN (7-18) mg/dl Creatinine (0.6-1.4) mg/dl Est Cr Clr Drug Dosing ml/min Est GFR ( Amer) ml/min Est GFR (Non-Af Amer) ml/min BUN/Creatinine Ratio (10-20) Glucose (70-99) mg/dl Calcium (8.5-10.1) mg/dl Magnesium (1.8-2.4) mg/dl Total Bilirubin (0.2-1) mg/dl AST (15-37) U/L ALT (12-78) U/L Alkaline Phosphatase (45-117) U/L Troponin I (0-0.045) ng/ml Total Protein (6.4-8.2) gm/dl Albumin (3.4-5.0) gm/dl Globulin (2.5-4.0) gm/dl Albumin/Globulin Ratio (0.9-2) Lipase (73-393) U/L COVID-19 Eval Order Covid19 at [facility] SARS-CoV-2 (PCR) NEGATIVE (Negative) Imaging Data Radiologist's Impression: Chest X-Ray 12/07/20 05:34 SINGLE VIEW CHEST CLINICAL HISTORY: Atypical chest pain. Atrial fibrillation. FINDINGS: An AP, portable, upright chest radiograph is compared to study dated 03/26/2019. The heart is enlarged noting atherosclerotic calcification of the thoracic aorta. The pulmonary vasculature is noncongested. There is bibasilar scarring/atelectasis. No airspace consolidation or large pleural effusion is identified. No pneumothorax is seen. The skeletal structures are osteopenic. The bony thorax is grossly intact. IMPRESSION: Cardiomegaly with no acute cardiopulmonary abnormality. ACT 112: Negative or not required by law. Electronically signed by: Aguilar Morse M.D. 12/07/2020 7:03 AM MDM Narrative Physical exam and history were performed. Nursing notes, EMR, and Medication List were personally reviewed. Patient appears to have chest pain bringing him to the emergency department. His discomfort is reportedly better after receiving aspirin and nitroglycerin prehospital. On arrival the patient is in A. fib with RVR at 114 bpm. IV access was established and labs were obtained. The patient was placed on nasal cannula. He was given 5 mg IV Lopressor as well as a GI cocktail for his symptoms. The case was discussed with my attending, Dr. Collins, who also independently evaluated the patient. An order was placed for continuous cardiac monitoring. The monitor shows a rate of 105 with atrial fibrillation rhythm. The patient's blood work is as above and was reviewed. He does not have a significantly elevated white blood cell count, gross anemia, bandemia, or significant electrolyte imbalance. Troponin is 1 is negative. Lipase and transaminases are not diagnostic. COVID-19 test was performed and negative. Chest x-ray was reviewed by myself and radiology showing no acute process. Overall the patient does not appear well for discharge home. He does have a history of A. fib, but has not been with rapid ventricular response. Additionally his chest pain is improved with nitroglycerin. The case was dis cussed with the on-call hospitalist team who agreed to evaluate him here in the ER. Please see their dictation for further patient course, plan, and disposition. The chart was completed utilizing [employer] Speech Voice Recognition Software. Grammatical errors, random word insertions, pronoun errors, and incomplete sentences are an occasional consequence of this system due to software limitations, ambient noise, and hardware issues. Any formal questions or concerns about the content, text, or information contained within the body of this dictation should be directly addressed to the provider for clarification. . Impression & Plan Atrial fibrillation with rapid ventricular response, Atypical chest pain Discharge Plan Visit Data Chief Complaint: Chest Pain Stated Complaint: CHEST PAIN ED Provider: Prakash Collins ED Midlevel Provider: Kenton Kathleen Discharge Problem: Atrial fibrillation with rapid ventricular response, Atypical chest pain Forms Stand Alone Forms: My [facility] Prescriptions Prescriptions: No Action tamsulosin 0.4 mg capsule 0.4 mg PO HS RF: 0 albuterol sulfate 90 mcg/actuation aerosol powdr breath activated 2 puffs INH Q6H PRN (Reason: Shortness Of Breath) RF: 0 budesonide-formoterol [Symbicort] 160-4.5 mcg/actuation HFA aerosol inhaler 2 puffs INH Q12H RF: 0 Eliquis 5 mg tablet 5 mg PO BID RF: 0 metoprolol succinate 50 mg Tablet Extended Release 24 Hr 25 mg PO QAM RF: 0 rosuvastatin 40 mg Tablet 20 mg PO QAM RF: 0 calcium carbonate [Calcium 600] 600 mg calcium (1,500 mg) Tablet 600 mg PO QPM RF: 0 pantoprazole 40 mg Tablet,Delayed Release (Dr/Ec) 40 mg PO DAILY RF: 0 Referrals Referrals: Lauren Mcdonald PA-C [Primary Care Provider] -
[2020-12-07 05:47] LABS: Basophils # (auto) 0.02 K/uL (0-0.2); Basophils % (auto) 0.2 %; Eosinophils # (auto) 0.15 K/uL (0-0.5); Eosinophils % (auto) 1.6 %; Hemoglobin 14.2 g/dL (14.0-18.0); Immature Granulocytes # (auto) 0.02 K/uL (0.00-0.02); Immature Granulocytes % (auto) 0.2 %; Lymphocytes # (auto) 0.83 K/uL (1.2-3.4); Lymphocytes % (auto) 8.7 %; Mean Corpuscular Hemoglobin 32.1 pg (25-34); Mean Corpuscular Volume 97.3 fL (80-100); Mean Platelet Volume 9.9 fL (7.4-10.4); Monocytes # (auto) 1.64 K/uL (0.11-0.59); Monocytes % (auto) 17.3 %; Neutrophils # (auto) 6.84 K/uL (1.4-6.5); Platelet Count 235 K/uL (130-400); RDW Coefficient of Variation 14.2 % (11.5-14.5); RDW Standard Deviation 50.7 fL (36.4-46.3); Red Blood Count 4.42 M/uL (4.7-6.1)
[2020-12-07 05:57] LABS: Partial Thromboplastin Ratio 1.2; Partial Thromboplastin Time 32.3 Seconds (21.0-31.0); Prothrombin Time 10.4 Seconds (9.0-12.0)
[2020-12-07 06:05] LABS: Alanine Aminotransferase 30 U/L (12-78); Albumin Level 3.5 gm/dl (3.4-5.0); Aspartate Aminotransferase 16 U/L (15-37); BUN Creatinine Ratio 13.3 (10-20); Blood Urea Nitrogen 13 mg/dl (7-18); Calcium 9.3 mg/dl (8.5-10.1); Carbon Dioxide 30 mmol/L (21-32); Chloride 102 mmol/L (98-107); Creatinine Clr Calc Pharmacy 91.4 ml/min; Est GFR (African American) 93.5 ml/min; Est GFR (Non-African American) 80.7 ml/min; Glucose 108 mg/dl (70-99); Lipase 144 U/L (73-393); Magnesium 1.9 mg/dl (1.8-2.4); Potassium 4.3 mmol/L (3.5-5.1); Sodium 131 mmol/L (136-145)
[2020-12-07 06:10] LABS: Albumin Globulin Ratio 0.9 (0.9-2); Alkaline Phosphatase 81 U/L (45-117); Bilirubin,Total 0.5 mg/dl (0.2-1); Total Protein 7.5 gm/dl (6.4-8.2); Troponin I < 0.015 ng/ml (0-0.045)
--- NOTE | 2020-12-07 06:38 | Emergency Department Note ---
ED Visit Note Physician Evaluation Note: I have personally evaluated and examined this patient. I agree with assessment and plan of Kenton Kathleen PA-C. 70 yr old male with history Afib though no known CAD history arrives with onset substernal chest pain. Resolved with ASA/SLNTG by EMS. EKG with Afib RVR no evidence STEMI. Prakash Collins MD
--- NOTE | 2020-12-07 06:52 | History & Physical Report ---
Date of Service December 07, 2020 Assessment & Plan (1) Chest pain: Plan: 70-year-old male with history of hypertension, hyperlipidemia, tobacco use, COPD presenting with left-sided chest pain that woke him from sleep. Troponin x1 is negative and EKG with no acute ischemic changes. Pain is somewhat reproducible with epigastric palpation. Suspect GI source over cardiac at this time. -Admit to medical floor with telemetry monitoring -Trend troponin q 8 hours x 3 sets total -Nitro PRN (2) Atrial fibrillation: Plan: Currently rate controlled at 102 bpm Telemetry monitoring Continue Eliquis 5 mg p.o. twice daily Continue metoprolol 25 mg p.o. every morning (3) HTN (hypertension): Plan: Chronic. Blood pressure mildly elevated 156/85 Continue metoprolol Continue to monitor (4) Hyperlipidemia: Plan: Chronic. Continue Crestor 20 mg p.o. every morning (5) BPH (benign prostatic hyperplasia): Plan: Chronic. No urinary complaints Continue tamsulosin (6) COPD (chronic obstructive pulmonary disease): Plan: CHronic -Continue Symbicort -Albuterol PRN Plan: F/E/N - Heplock. MOnitor electrolytes. AHA diet as tolerated Ppx - On Apixaban - will continue Code - DNR/DNI per discussion with patient Dispo - Admit to medical with telemetry History of Present Illness Chief Complaint: chest pain Primary Care Provider: Lauren Mcdonald Patient is a 70-year-old male with history of atrial fibrillation on Eliquis anticoagulation, hypertension, hyperlipidemia and COPD presenting with chest pain that woke him from sleep. Pain severe, 7/10, substernal to epigastric. No associated diaphoresis, shortness of breath, dizziness. Nonradiating. Nonexertional. Nonpleuritic. No history of prior Patient still with discomfort now. Was significantly reduced with nitro ER course: Maalox, metoprolol, normal saline Allergies Allergy/AdvReac Type Severity Reaction Status Date / Time No Known Allergies Allergy Verified 03/30/20 09:26 Home Medications Medication Instructions Recorded Confirmed Type acetaminophen 650 mg 1,300 mg PO Q12H PRN tab 08/19/19 09/08/20 History tablet,extended release (Tylenol 8 Hour) albuterol sulfate 90 mcg/actuation 2 puffs INH Q6H PRN 08/19/19 09/08/20 History breath activated powder inhaler apixaban 5 mg tablet (Eliquis) 5 mg PO BID 08/19/19 09/08/20 History budesonide-formoterol HFA 160 2 puffs INH Q12H 08/19/19 09/08/20 History mcg-4.5 mcg/actuation aerosol inhaler (Symbicort) calcium carbonate 600 mg calcium 600 mg PO QPM 09/24/19 09/08/20 History (1,500 mg) tablet (Calcium) tamsulosin 0.4 mg capsule 0.8 mg PO HS cap 10/06/19 09/08/20 History metoprolol succinate 50 mg 25 mg PO QAM 01/08/20 09/08/20 History tablet,extended release 24 hr rosuvastatin 40 mg tablet 20 mg PO QAM 01/08/20 09/08/20 History pantoprazole 40 mg tablet,delayed 40 mg PO DAILY 12/07/20 12/07/20 History release Past Med/Surg History Medical History (Updated 12/07/20 @ 06:49 by Laurie Guzmán DO) Anemia Angina at rest Atrial fibrillation on eliquis, follows with [facility] BPH (benign prostatic hyperplasia) Chronic anticoagulation on eliquis daily COPD exacerbation inhaler daily/prn Diverticulosis Dyspnea on exertion Edema Fall a year & a half ago 2018, bruised a bone right hip HTN (hypertension) Hyperlipidemia Lumbar spinal stenosis Mitral regurgitation PAD (peripheral artery disease) Prostate cancer diagnosed 06/2019--currently receiving radiation tx PVD (peripheral vascular disease) Surgical History History of uuzap-ohcqm-zujljip bypass appx 2015 [facility] History of colonoscopy with polypectomy recent 09/2019 History of esophagogastroduodenoscopy (EGD) recent 09/2019 History of mandibular surgery jaw fx History of open reduction and internal fixation (ORIF) procedure right ankle 1968---hardware in place History of prostate biopsy malignant S/P appendectomy appx 1998 S/P TURP (transurethral resection of prostate) Family History Mother Dementia age 89 Father , age 94 of old age. No problems noted. Brother No problems noted. Brother No problems noted. Daughter No problems noted. Son Diabetes Other No family history of adverse response to anesthesia Denies family history of Crohn's disease Colorectal cancer Ulcerative colitis Social History Smoking Status: Current every day smoker Age Started Using Tobacco: 12; packs per day: 0.5; Years Smoked: 56; Cigarettes Per Day: 10 a day; Second Hand Exposure: No; Hx Alcohol Use: Yes Alcohol type: beer Hx Substance Use: No Preferred Language: [place]orese Communication Ability: Effective Visual Impairment: Limited Hearing Ability: Normal Life Sciences Teacher Required: No Beliefs That Will Affect Care: None marital status: Current Living Situation: Family Current Living Situation Comment: Lives with daughter current occupational status: retired current occupation: [employer] Feels Safe at Home: Yes Childhood Exposure to Second-Hand Smoke: Yes caffeine: Yes (3 cups of coffee daily) during the past year weight has: remained stable Dental Care, Regularly: No Assistive Devices: Denture - Upper and Glasses Review of Systems Review of Systems: All systems reviewed & are unremarkable except as noted in HPI & below Physical Exam Physical Exam: General: patient resting comfortably, NAD, non-toxic in appearance, AA&O x 4 Skin: warm, dry, intact, no rashes or lesions HEENT: NC/AT, PERRL, EOMI, anicteric sclera, conjunctiva without injection, external ear normal to inspection and nontender, nares patent, moist mucus me mbranes, dentition intact, no oropharyngeal lesions, neck supple, trachea midline, no LAD, no thyromegaly, no JVD Heart: +S1/S2, irregularly irregular, no m/r/g Lungs: equal air entry bilaterally, no rales/rhonchi/wheezes Abd: +BS, soft, , tender in epigastric region, ND, no masses/organomegaly/ascites Ext: warm, 2+ pulses in UE/LE bilaterally, no clubbing/cyanosis or edema, skin thickening of bilateral LE Neuro: nonfocal, patient AA&O x 4, speech intact, no facial droop, moving all extremities on command with equal strength 5/5 Results & Data Results & Data ([facility]) Vital Signs (Past 12 Hours) Vital Signs Temp Pulse Resp BP Pulse Ox 12/07/20 06:00 104 H 22 133/91 96 12/07/20 05:30 37.1 C 102 H 22 156/85 H 94 Laboratory Results Laboratory Results WBC 9.50 K/uL (4.8-10.8) 12/07/20 05:00 RBC 4.42 M/uL (4.7-6.1) L 12/07/20 05:00 Hgb 14.2 g/dL (14.0-18.0) 12/07/20 05:00 Hct 43.0 % (42-52) 12/07/20 05:00 MCV 97.3 fL (80-100) 12/07/20 05:00 MCH 32.1 pg (25-34) 12/07/20 05:00 MCHC 33.0 g/dL (32-36) 12/07/20 05:00 RDW Std Deviation 50.7 fL (36.4-46.3) H 12/07/20 05:00 RDW Coeff of David 14.2 % (11.5-14.5) 12/07/20 05:00 Plt Count 235 K/uL (130-400) 12/07/20 05:00 MPV 9.9 fL (7.4-10.4) 12/07/20 05:00 Immature Gran % (Auto) 0.2 % 12/07/20 05:00 Neut % (Auto) 72.0 % 12/07/20 05:00 Lymph % (Auto) 8.7 % 12/07/20 05:00 Chaves % (Auto) 17.3 % 12/07/20 05:00 Eos % (Auto) 1.6 % 12/07/20 05:00 Baso % (Auto) 0.2 % 12/07/20 05:00 Neut # (Auto) 6.84 K/uL (1.4-6.5) H 12/07/20 05:00 Lymph # (Auto) 0.83 K/uL (1.2-3.4) L 12/07/20 05:00 Chaves # (Auto) 1.64 K/uL (0.11-0.59) H 12/07/20 05:00 Eos # (Auto) 0.15 K/uL (0-0.5) 12/07/20 05:00 Baso # (Auto) 0.02 K/uL (0-0.2) 12/07/20 05:00 Immature Gran # (Auto) 0.02 K/uL (0.00-0.02) 12/07/20 05:00 PT 10.4 Seconds (9.0-12.0) 12/07/20 05:00 INR 1.0 (0.9-1.1) 12/07/20 05:00 APTT 32.3 Seconds (21.0-31.0) H 12/07/20 05:00 PTT Ratio 1.2 12/07/20 05:00 Sodium 131 mmol/L (136-145) L 12/07/20 05:00 Potassium 4.3 mmol/L (3.5-5.1) 12/07/20 05:00 Chloride 102 mmol/L (98-107) 12/07/20 05:00 Carbon Dioxide 30 mmol/L (21-32) 12/07/20 05:00 Anion Gap -1.0 (3-11) L 12/07/20 05:00 BUN 13 mg/dl (7-18) 12/07/20 05:00 Creatinine 0.94 mg/dl (0.6-1.4) 12/07/20 05:00 Est Cr Clr Drug Dosing 91.4 ml/min 12/07/20 05:00 Est GFR ( Amer) 93.5 ml/min 12/07/20 05:00 Est GFR (Non-Af Amer) 80.7 ml/min 12/07/20 05:00 BUN/Creatinine Ratio 13.3 (10-20) 12/07/20 05:00 Glucose 108 mg/dl (70-99) H 12/07/20 05:00 Calcium 9.3 mg/dl (8.5-10.1) 12/07/20 05:00 Magnesium 1.9 mg/dl (1.8-2.4) 12/07/20 05:00 Total Bilirubin 0.5 mg/dl (0.2-1) 12/07/20 05:00 AST 16 U/L (15-37) 12/07/20 05:00 ALT 30 U/L (12-78) 12/07/20 05:00 Alkaline Phosphatase 81 U/L (45-117) 12/07/20 05:00 Troponin I < 0.015 ng/ml (0-0.045) 12/07/20 05:00 Total Protein 7.5 gm/dl (6.4-8.2) 12/07/20 05:00 Albumin 3.5 gm/dl (3.4-5.0) 12/07/20 05:00 Globulin 4.0 gm/dl (2.5-4.0) 12/07/20 05:00 Albumin/Globulin Ratio 0.9 (0.9-2) 12/07/20 05:00 Lipase 144 U/L (73-393) 12/07/20 05:00 COVID-19 Eval Order Covid19 at [facility] 12/07/20 06:01 ECG Additional Comments: EKG with atrial fibrillation at 114 bpm, normal axis, QRS = 82, QTc = 463, no acute ischemic changes Code Status & VTE Plan VTE Prophylaxis Plan VTE Prophylaxis will be ordered: Yes PG Care Time/CCT Total # of Minutes Spent Total Time Spent with Patient: Total time spent is greater than 50% in coordination of care (as documented) at patient's floor/unit and/or counseling patient: Coding Level of Care Code 14722 Initial Inpt Care Lvl 2 Diagnoses Atrial fibrillation I48.91 Atrial fibrillation type: unspecified BPH (benign prostatic hyperplasia) N40.0 HTN (hypertension) I10 Hyperlipidemia E78.5 Chest pain R07.9 COPD (chronic obstructive pulmonary disease) J44.9 (1) Atrial fibrillation Atrial fibrillation type: unspecified Qualified Code(s): I48.91 - Unspecified atrial fibrillation
--- NOTE | 2020-12-07 07:04 | XRay Report ---
SINGLE VIEW CHEST CLINICAL HISTORY: Atypical chest pain. Atrial fibrillation. FINDINGS: An AP, portable, upright chest radiograph is compared to study dated 03/26/2019. The heart is enlarged noting atherosclerotic calcification of the thoracic aorta. The pulmonary vasculature is noncongested. There is bibasilar scarring/atelectasis. No airspace consolidation or large pleural eff usion is identified. No pneumothorax is seen. The skeletal structures are osteopenic. The bony thorax is grossly intact. IMPRESSION: Cardiomegaly with no acute cardiopulmonary abnormality. ACT 112: Negative or not required by law. Electronically signed by: Aguilar Morse M.D. 12/07/2020 7:03 AM
[2020-12-07] MEDS ORDERED: ONDANSETRON INJ 2 MG/ML 2 ML VIAL IV PRN (14:19)
[2020-12-07] MEDS ORDERED: NITROGLYCERIN SL 0.4 MG/TAB TAB SL PRN (14:19)
[2020-12-07] MEDS ORDERED: PANTOprazole 40 MG TAB PO SCH (14:19)
[2020-12-07] MEDS ORDERED: ALUMINUM/MAGNESIUM SUSP 30 ML UDC PO PRN (14:19)
[2020-12-07] MEDS ORDERED: ACETAMINOPHEN 325 MG TAB PO PRN (14:19)
[2020-12-07] MEDS ORDERED: LORazepam 1 MG TAB PO PRN (14:19)
[2020-12-07] MEDS ORDERED: ALBUTEROL HFA 8 GM INHALER INH PRN (14:30)
--- NOTE | 2020-12-07 15:27 | Electrocardiogram Report ---
Test Reason : Blood Pressure : / mmHG Vent. Rate : 114 BPM Atrial Rate : 115 BPM P-R Int : 000 ms QRS Dur : 082 ms QT Int : 336 ms P-R-T Axes : 000 049 024 degrees QTc Int : 463 ms Atrial fibrillation with rapid ventricular response Low voltage QRS Abnormal ECG When compared with ECG of 26-MAR-2019 10:48, Criteria for Septal infarct are no longer Present Confirmed by Adebayo Jensen ([id number]) on 12/07/2020 3:26:31 PM Referred By: REFERRED SELF Confirmed By:Gui Jensen
[2020-12-07] MEDS: APIXABAN 5 MG TABLET PO SCH ×2 (15:31→21:03)
[2020-12-07] MEDS: FOLIC ACID 1 MG TAB PO SCH (15:31)
[2020-12-07] MEDS: METOPROLOL SUCC 25MG EXT REL TAB PO SCH (15:32)
[2020-12-07] MEDS: ROSUVASTATIN CALCIUM 20 MG TAB PO SCH (15:33)
[2020-12-07] MEDS: THIAMINE HCL 100 MG TAB PO SCH (15:34)
[2020-12-07] MEDS: FLUTICASONE/VILANTEROL 100/25MCG 14 PUFFS/INHALER INH SCH (15:34)
[2020-12-07] MEDS ORDERED: TAMSULOSIN HCL 0.4 MG CAP PO SCH (21:00)
--- NOTE | 2020-12-07 21:02 | History & Physical Bridge Note ---
Date of Service December 07, 2020 History & Physical Bridge Note I have examined the patient, reviewed the History & Physical and in the interval since the performance of the History & Physical I have noted the following changes of clinical significance: Pt reports pain in center of chest was much improved after receiving GI cocktail this AM, but has remained a constant dull pain all day. Not ttp. Feels like acid burning. Trops negative x 2 today. He was lying flat when pain came on. Has a h/o Conroy's esophagus on EGD 09/2019. Reported EtOH use as well Hyponatremia possibly beer potomania VSS NAD, obese RRR no mgr lungs with exp wheezes, mild Chest no TTP over chest wall Ext 1+ woody edema, chronic 70 yo male with atypical CP Non cardiac. Had cardiac cath with RCA occlusion and collaterals in last few years, no angina typically Increase Protonix to 40mg po bid and add second GI cocktail this evening. If doing well in AM, can dc to home before [facility]
[2020-12-07] MEDS ORDERED: ALUMINUM/MAGNESIUM SUSP 18 ML, LIDOCAINE VISCOUS 2% SOLN 6 ML, BARCODE IDENTIFIER 1 EA PO ONE (21:30)
[2020-12-07] MEDS: PANTOprazole 40 MG TAB PO SCH (21:59)
[2020-12-08 08:16] VITALS: TEMP 98.8; O2SAT 97
[2020-12-08 08:17] LABS: Basophils # (auto) 0.01 K/uL (0-0.2); Basophils % (auto) 0.2 %; Eosinophils # (auto) 0.11 K/uL (0-0.5); Eosinophils % (auto) 1.7 %; Hematocrit (blood only) 40.7 % (42-52); Hemoglobin 12.8 g/dL (14.0-18.0); Immature Granulocytes # (auto) 0.01 K/uL (0.00-0.02); Immature Granulocytes % (auto) 0.2 %; Lymphocytes # (auto) 0.86 K/uL (1.2-3.4); Lymphocytes % (auto) 13.3 %; Mean Corpuscular Hemoglobin 31.6 pg (25-34); Mean Corpuscular Hgb Conc 31.4 g/dL (32-36); Mean Corpuscular Volume 100.5 fL (80-100); Mean Platelet Volume 10.1 fL (7.4-10.4); Monocytes # (auto) 0.87 K/uL (0.11-0.59); Monocytes % (auto) 13.4 %; Neutrophils # (auto) 4.62 K/uL (1.4-6.5); Neutrophils % (auto) 71.2 %; Platelet Count 210 K/uL (130-400); RDW Coefficient of Variation 14.5 % (11.5-14.5); RDW Standard Deviation 53.7 fL (36.4-46.3); Red Blood Count 4.05 M/uL (4.7-6.1); White Blood Count 6.48 K/uL (4.8-10.8)
[2020-12-08 08:46] LABS: BUN Creatinine Ratio 12.7 (10-20); Calcium 9.3 mg/dl (8.5-10.1); Creatinine Clr Calc Pharmacy 95.2 ml/min; Est GFR (African American) 99.5 ml/min; Est GFR (Non-African American) 85.8 ml/min; Potassium 4.4 mmol/L (3.5-5.1)
[2020-12-08] MEDS: FLUTICASONE/VILANTEROL 100/25MCG 14 PUFFS/INHALER INH SCH (08:54)
[2020-12-08] MEDS: APIXABAN 5 MG TABLET PO SCH (08:55)
[2020-12-08] MEDS: METOPROLOL SUCC 25MG EXT REL TAB PO SCH (08:56)
[2020-12-08] MEDS: PANTOprazole 40 MG TAB PO SCH (08:56)
[2020-12-08] MEDS: FOLIC ACID 1 MG TAB PO SCH (08:57)
[2020-12-08] MEDS: ROSUVASTATIN CALCIUM 20 MG TAB PO SCH (08:57)
[2020-12-08] MEDS: THIAMINE HCL 100 MG TAB PO SCH (08:57)
--- NOTE | 2020-12-08 09:50 | Discharge Summary ---
Date of Service December 08, 2020 Admission HPI Per Admitting Provider Patient is a 70-year-old male with history of atrial fibrillation on Eliquis anticoagulation, hypertension, hyperlipidemia and COPD presenting with chest pain that woke him from sleep. Pain severe, 7/10, substernal to epigastric. No associated diaphoresis, shortness of breath, dizziness. Nonradiating. Nonexertional. Nonpleuritic. No history of prior Patient still with discomfort now. Was significantly reduced with nitro ER course: Maalox, metoprolol, normal saline Principal Diagnosis Atypical chest pain-GERD related Discharge Exam Constitutional WD/WN, vitals as above Eyes + anicteric sclerae ENMT external ear and nose normal, oropharynx normal Nose: + external nose abnormality (bulbous) Neck trachea midline, no thyromegaly Respiratory normal respiratory effort Auscultation: + rhonchi (scattered) and + wheezes (bilateral, exp) Cardiovascular Rate/Rhythm: regular rate and + irregularly irregular Heart Sounds: no murmur Extremities: + edema (1+ woody edema legs bilat) Chest (Breasts) Chest: normal inspection of chest Gastrointestinal (Abdomen) normal bowel sounds, soft, nontender, no hepatosplenomegaly Musculoskeletal Extremities: extremities normal to inspection; no cyanosis and no clubbing Skin no rashes, warm and dry Neurologic moves all extremities and awake; no focal motor deficits Psychiatric A+Ox3, euthymic affect Discharge Data Allergies Allergy/AdvReac Type Severity Reaction Status Date / Time No Known Allergies Allergy Verified 12/07/20 07:15 Consultations 12/07/20 06:26 ED Decision to Admit Stat Ordered Studies 12/08/20 12/08/20 12/07/20 Range/Units 06:58 06:58 22:26 WBC 6.48 (4.8-10.8) K/uL RBC 4.05 L (4.7-6.1) M/uL Hgb 12.8 L (14.0-18.0) g/dL Hct 40.7 L (42-52) % MCV 100.5 H (80-100) fL MCH 31.6 (25-34) pg MCHC 31.4 L (32-36) g/dL RDW Std Deviation 53.7 H (36.4-46.3) fL RDW Coeff of David 14.5 (11.5-14.5) % Plt Count 210 (130-400) K/uL MPV 10.1 (7.4-10.4) fL Immature Gran % (Auto) 0.2 % Neut % (Auto) 71.2 % Lymph % (Auto) 13.3 % Linn % (Auto) 13.4 % Eos % (Auto) 1.7 % Baso % (Auto) 0.2 % Neut # (Auto) 4.62 (1.4-6.5) K/uL Lymph # (Auto) 0.86 L (1.2-3.4) K/uL Linn # (Auto) 0.87 H (0.11-0.59) K/uL Eos # (Auto) 0.11 (0-0.5) K/uL Baso # (Auto) 0.01 (0-0.2) K/uL Immature Gran # (Auto) 0.01 (0.00-0.02) K/uL Sodium 137 (136-145) mmol/L Potassium 4.4 (3.5-5.1) mmol/L Chloride 102 (98-107) mmol/L Carbon Dioxide 32 (21-32) mmol/L Anion Gap 3.0 (3-11) BUN 11 (7-18) mg/dl Creatinine 0.88 (0.6-1.4) mg/dl Est Cr Clr Drug Dosing 95.2 ml/min Est GFR ( Amer) 99.5 ml/min Est GFR (Non-Af Amer) 85.8 ml/min BUN/Creatinine Ratio 12.7 (10-20) Glucose 96 (70-99) mg/dl Calcium 9.3 (8.5-10.1) mg/dl Troponin I < 0.015 (0-0.045) ng/ml 12/07/20 Range/Units 14:33 WBC (4.8-10.8) K/uL RBC (4.7-6.1) M/uL Hgb (14.0-18.0) g/dL Hct (42-52) % MCV (80-100) fL MCH (25-34) pg MCHC (32-36) g/dL RDW Std Deviation (36.4-46.3) fL RDW Coeff of David (11.5-14.5) % Plt Count (130-400) K/uL MPV (7.4-10.4) fL Immature Gran % (Auto) % Neut % (Auto) % Lymph % (Auto) % Linn % (Auto) % Eos % (Auto) % Baso % (Auto) % Neut # (Auto) (1.4-6.5) K/uL Lymph # (Auto) (1.2-3.4) K/uL Linn # (Auto) (0.11-0.59) K/uL Eos # (Auto) (0-0.5) K/uL Baso # (Auto) (0-0.2) K/uL Immature Gran # (Auto) (0.00-0.02) K/uL Sodium (136-145) mmol/L Potassium (3.5-5.1) mmol/L Chloride (98-107) mmol/L Carbon Dioxide (21-32) mmol/L Anion Gap (3-11) BUN (7-18) mg/dl Creatinine (0.6-1.4) mg/dl Est Cr Clr Drug Dosing ml/min Est GFR ( Amer) ml/min Est GFR (Non-Af Amer) ml/min BUN/Creatinine Ratio (10-20) Glucose (70-99) mg/dl Calcium (8.5-10.1) mg/dl Troponin I < 0.015 (0-0.045) ng/ml Chest X-Ray 12/07/20 05:34 SINGLE VIEW CHEST CLINICAL HISTORY: Atypical chest pain. Atrial fibrillation. FINDINGS: An AP, portable, upright chest radiograph is compared to study dated 03/26/2019. The heart is enlarged noting atherosclerotic calcification of the thoracic aorta. The pulmonary vasculature is noncongested. There is bibasilar scarring/atelectasis. No airspace consolidation or large pleural effusion is identified. No pneumothorax is seen. The skeletal structures are osteopenic. The bony thorax is grossly intact. IMPRESSION: Cardiomegaly with no acute cardiopulmonary abnormality. ACT 112: Negative or not required by law. Electronically signed by: Aguilar Morse M.D. 12/07/2020 7:03 AM Hospital Course (1) Chest pain: 70-year-old male with history of hypertension, hyperlipidemia, tobacco use, COPD presenting with substernal chest pain that woke him from sleep and feels burning in nature. Lasted many hours prior to admission and serial troponins neg x 3. ECG unchanged Troponin x1 is negative and EKG with no acute ischemic changes. Pain is somewhat reproducible with epigastric palpation. Suspect GI source over cardiac at this time. Improved with GI cocktails and increasing PPI to bid advised continue PPI bid x 1 month and then revert to once daily advised smoking cessation, needs weight loss no thrush in mouth but could have esophageal candidiasis given inhaled corticosteroid as well if not continuing to improve with PPI bid, consider repeat EGD as outpt or treatment with diflucan empirically (2) Atrial fibrillation: rate controlled Continue Eliquis 5 mg p.o. twice daily Continue metoprolol 25 mg p.o. every morning (3) HTN (hypertension): Chronic. Blood pressure controlled here Continue metoprolol (4) Hyperlipidemia: Chronic. Continue Crestor 20 mg p.o. every morning (5) BPH (benign prostatic hyperplasia): Chronic. No urinary complaints. DOes have prostate CA and just received treatment for this Continue tamsulosin (6) COPD (chronic obstructive pulmonary disease): CHronic -Continue Symbicort -Albuterol PRN (7) GERD (gastroesophageal reflux disease): PPI as above, with Conroy's, last EGD 09/2019 continue outpt f/u with GI (8) Barretts esophagus: as above (9) Chronic respiratory failure with hypoxia: used to have O2 at home but now refuses to wear it as it gives him dry thorat and headaches. [facility] for POx 87% while sleeping but declines further O2 on discharge f/u with PCP Dispo-dc to home Total Time Total Time Spent Total Time Spent (In Minutes): 35 min Discharge Plan Discharge Items Patient Disposition: Home - Self-Care Reason For Visit: CHEST PAIN Discharge Diagnosis: Chest pain-acid reflux Condition on Discharge: Fair Activity: Resume your previous activity Non-emergency contact: Primary Care Provider Call non-emergency contact if: you have any medication questions, your symptoms worsen and your pain is not controlled Follow-up/Referrals: Lauren Mcdonald PA-C [Primary Care Provider] - (Please follow up within 1-2 weeks) Diet: Heart Healthy Addtl Attending Provider Instructions: You were admitted with chest pain that improved with medications for acid reflux. You had blood tests that showed you did NOT have a heart attack. Please increase your Protonix to twice a day to help improve your chest pain x 1 month, then return to the once daily dosing. You do have lower oxygen levels at times and should wear oxygen, but I understand it causes you side effects. Please discuss this further with your PCP. It would be beneficial for you to wear oxygen at least at nighttime. Pending Studies at Discharge: No Stand-Alone Forms: My [facility], Smoking Cessation Medications and DC Order Prescriptions: New folic acid 1 mg Tablet 1 mg PO QAM Qty: 30 RF: 0 thiamine HCl (vitamin B1) [Vitamin B-1] 100 mg Tablet 100 mg PO QAM Qty: 30 RF: 0 Continued tamsulosin 0.4 mg capsule 0.4 mg PO HS RF: 0 albuterol sulfate 90 mcg/actuation aerosol powdr breath activated 2 puffs INH Q6H PRN (Reason: Shortness Of Breath) RF: 0 budesonide-formoterol [Symbicort] 160-4.5 mcg/actuation HFA aerosol inhaler 2 puffs INH Q12H RF: 0 Eliquis 5 mg tablet 5 mg PO BID RF: 0 metoprolol succinate 50 mg Tablet Extended Release 24 Hr 25 mg PO QAM RF: 0 rosuvastatin 40 mg Tablet 20 mg PO QAM RF: 0 calcium carbonate [Calcium 600] 600 mg calcium (1,500 mg) Tablet 600 mg PO QPM RF: 0 Changed pantoprazole 40 mg Tablet,Delayed Release (Dr/Ec) 40 mg PO BID Qty: 0 RF: 0 Discharge Orders: Discharge Order (Routine); Ordered 12/08/20 Ordered By: Maddie Caldwell Admission Data Admit Date/Time: 12/07/20 06:38 Attending Provider: Maddie Caldwell Admit Provider: Laurie Guzmán Primary Care Provider: Lauren Mcdonald. Other Providers: Laurie Guzmán ; [facility] Coding Level of Care Code D/C DAY MANAGEMENT >30 MINS Diagnoses Chest pain R07.9 Atrial fibrillation I48.91 Atrial fibrillation type: unspecified HTN (hypertension) I10 Hyperlipidemia E78.5 BPH (benign prostatic hyperplasia) N40.0 COPD (chronic obstructive pulmonary disease) J44.9 GERD (gastroesophageal reflux disease) K21.9 Barretts esophagus K22.70 Chronic respiratory failure with hypoxia J96.11
[2020-12-08 10:24] VITALS: BP 130/78; PULSE 80
== END 2020-12-08 10:38 | disposition home or self-care (01) | DRG 392 ==
LOC: ED 05:26 → EDINP 06:38 → SUATTDRO 06:38 → 2N 14:34
DX: C61 Malignant neoplasm of prostate; E78.5 Hyperlipidemia, unspecified; I10 Essential (primary) hypertension; F17.200 Nicotine dependence, unspecified, uncomplicated; R07.89 Other chest pain; N40.0 Benign prostatic hyperplasia without lower urinary tract symptoms; J44.9 Chronic obstructive pulmonary disease, unspecified; Z79.01 Long term (current) use of anticoagulants; K21.00 Gastro-esophageal reflux disease with esophagitis, without bleeding; E87.1 Hypo-osmolality and hyponatremia; I34.0 Nonrheumatic mitral (valve) insufficiency; I48.91 Unspecified atrial fibrillation; J96.11 Chronic respiratory failure with hypoxia; K22.70 Barrett's esophagus without dysplasia; I73.9 Peripheral vascular disease, unspecified

== ENCOUNTER 2020-12-26 01:15 | Inpatient (IN) ==
[2020-12-26] MEDS ORDERED: METOPROLOL TARTRATE 1 MG/ML VIAL IV STA ×3 (01:32→03:17)
--- NOTE | 2020-12-26 01:35 | Emergency Department Note ---
Impression & Plan Acute hypoxemic respiratory failure, Atrial fibrillation with rapid ventricular response, Congestive heart failure ED Provider Note Name: WALKER RUSH Age: 70 Sex: M Arrives Via: Ambulance Informant: Patient, ED Provider: Prakash Collins MD Chief Complaint: Shortness of breath Impression: See Above Medical Decision Makin yr old male with history COPD, GERD, HTN, Afib on eliquis, amongst others arrives for acute worsening sob over the last 2 days. On arrival diffusely wet lung sounds, leg swelling, and hypoxia. By exam and CXR this very much appears to be new onset CHF. Suspect afib related rather than primarily ACS. No clear evidence infectious etiology and given findings seems less likely primary copd exacerbation. Already on eliquis the PE unlikely. Breathing improved on NRB and HR slowly coming down with multiple rounds of IV lopressor. I did given IV lasix with good diuresis. He appears much more comfortable though still requiring NRB and will need to come in for furhter management. Prior Medical Record and Triage/Nursing Notes reviewed by Me Additional history obtained from chart Differentials:Reactive airway disease, pneumonia, pneumothorax, COPD, CHF, infections, cardiac ischemia, pulmonary embolism, musculoskeletal, gastrointestinal, as well as other pathologies. Vital Signs: reviewed and remarkable for hypoxia, tachy Interventions: Lopressor 5mg IV x 3, Lasix 40mg IV Labs:Reviewed and remarkable for no significant abnormalities Imaging:X ray results are stated below per my interpretation: Chest: 1 view: Congestive failure EKG:Per My Interpretation: Indication shob: Afib RVR 120 bpm, qtc 350, no ischemia, similar to ekg from 12/07/20 Cardiac/Tele Monitoring: Cardiac Monitoring: An Order was placed for continuous cardiac monitoring. The monitor shows a rate of 110 with a afib rvr rhythm. Consults:Dr Mc HAMLIN Hospitalist Plan: Disposition:Hospitalization. Condition: Fair History of Present Illness:70 yr old male arrives for evaluation of shortness of breath. Recent hospitalization for shortness of breath and was doing well until the last 2 days. The last 2 days worsening breathing difficulty, cough, and weakness. Associated with leg swelling, palpitations. Worse with exertion and laying flat. Better with sitting up. Does not cough seems productive. No fevers, chills, syncope, abdominal pain, back pain, headache, neck pain, nausea, vomiting, rashes, nor other symptoms. Denies falls, trauma, injuries. Neb and NRB by EMS with minimal improvement. History of COPD though this seems different. Denies CHF history nor CAD though does have afib and is on eliquis for it. ROS: See above HPI for pertinent positives & negatives. A total of 10 systems reviewed and were otherwise negative. Past Medical History:See Below Past Surgical History:See Below Family History:See Below Social History:See Below Home Medications:See Below Allergies:NKDA Vitals:Blood Pressure: 137/76, Pulse 120, RR 22, T 36.5C, O2 95% on NRB Physical Exam: GENERAL: Patient is unwell appearing and in mild distress. EYES: No scleral icterus, unremarkable pupils. ENT: Mucous membranes moist, no nasal congestion. NECK: No masses appreciated, nomeningismus, trachea is midline. RESPIRATORY: diffuse wet crackles with moderate dyspnea CARDIOVASCULAR: Tachy, irregular GASTROINTESTINAL: Abdomen soft, non-tender, no peritonitis.Bowel sounds positive.No masses appreciated. BACK: No midline tenderness, no CVA tenderness EXTREMITIES: Normal motion all extremities, no cyanosis, bilateral pitting leg edema. NEUROLOGIC: Alert and oriented, no acute motor or sensory deficits, no focal weakness, cranial nerves grossly intact. SKIN: No rash, no jaundice, no diaphoresis. PSYCH: Appropriate GCS: 15 ED Course: Times/Reassessments: improving HR with lopressor, breathing comfortable on NRB. Lasix resulting in increasing UOP Critical Care: I have personally spent 37 minutes of critical care time in the direct management of this patient. Afib RVR resulting in CHF exacerbation, hypoxia requiring NRB mask and multipel IV lopressor doses. This was a life/limb threatening event. This 37 minutes is in excess of all separately billable procedures. Prakash Collins MD Past Med/Surg History Medical History (Updated 12/27/20 @ 05:44 by Prakash Collins MD) Anemia Angina at rest Atrial fibrillation on eliquis, follows with [place] [facility] BPH (benign prostatic hyperplasia) Chronic anticoagulation on eliquis daily Chronic respiratory failure with hypoxia COPD exacerbation inhaler daily/prn Diverticulosis Dyspnea on exertion Edema Fall a year & a half ago 2017, bruised a bone right hip GERD (gastroesophageal reflux disease) HTN (hypertension) Hyperlipidemia Lumbar spinal stenosis Mitral regurgitation PAD (peripheral artery disease) Prostate cancer diagnosed 06/2019--currently receiving radiation tx PVD (peripheral vascular disease) Surgical History History of [id number] bypass appx 2015 [facility] History of colonoscopy with polypectomy recent 09/2019 History of esophagogastroduodenoscopy (EGD) recent 09/2019 History of mandibular surgery jaw fx History of open reduction and internal fixation (ORIF) procedure right ankle 1968---hardware in place History of prostate biopsy malignant S/P appendectomy appx 1998 S/P TURP (transurethral resection of prostate) Family History Mother Dementia age 89 Father , age 94 of old age. No problems noted. Brother No problems noted. Brother No problems noted. Daughter No problems noted. Son Diabetes Other No family history of adverse response to anesthesia Denies family history of Crohn's disease Colorectal cancer Ulcerative colitis Social History Smoking Status: Current every day smoker Tobacco Type: Cigarettes Age Started Using Tobacco: 12; packs per day: 0.5; Years Smoked: 56; Cigarettes Per Day: half pack; Smoking End Date: 3 days ago; Second Hand Exposure: No; Hx Alcohol Use: Yes Alcohol type: beer Hx Substance Use: No Preferred Language: Marshallese Communication Ability: Effective Visual Impairment: Limited Hearing Ability: Normal Yard Hand Required: No Beliefs That Will Affect Care: None marital status: Current Living Situation: Family Current Living Situation Comment: lives at home with daughter current occupational status: retired current occupation: [email or web address] Feels Safe at Home: Yes Safety Concerns: Feels Safe At This Time Childhood Exposure to Second-Hand Smoke: Yes caffeine: Yes (3 cups of coffee daily) during the past year weight has: remained stable Dental Care, Regularly: No Assistive Devices: Oxygen - Continuous Assistive Devices Comment: patient unsure if he wears CPAP or BiPAP Allergies Allergies Allergy/AdvReac Type Severity Reaction Status Date / Time No Known Allergies Allergy Verified 12/07/20 07:15 Home Meds Home Medications Medication Instructions Recorded Confirmed albuterol sulfate 90 mcg/actuation 2 puffs INH Q6H PRN 08/19/19 12/07/20 breath activated powder inhaler apixaban 5 mg tablet (Eliquis) 5 mg PO BID 08/19/19 12/07/20 budesonide-formoterol HFA 160 2 puffs INH Q12H 08/19/19 12/07/20 mcg-4.5 mcg/actuation aerosol inhaler (Symbicort) calcium carbonate 600 mg calcium 600 mg PO QPM 09/24/19 12/07/20 (1,500 mg) tablet (Calcium) tamsulosin 0.4 mg capsule 0.4 mg PO HS cap 10/06/19 12/07/20 metoprolol succinate 50 mg 25 mg PO QAM 01/08/20 12/07/20 tablet,extended release 24 hr rosuvastatin 40 mg tablet 20 mg PO QAM 01/08/20 12/07/20 Previous Rx's Medication Instructions Recorded folic acid 1 mg tablet 1 mg PO QAM #30 tab 12/08/20 pantoprazole 40 mg tablet,delayed 40 mg PO BID #0 tab 12/08/20 release thiamine HCl (vitamin B1) 100 mg 100 mg PO QAM #30 tab 12/08/20 tablet (Vitamin B-1) Results & Data (ED) Vital Signs Vital Signs - 24 hr 12/26/20 01:18 12/26/20 01:29 Temperature 37.0 C Temperature Source Oral Pulse Rate 124 H Respiratory Rate 24 Respiratory Effort / Characteristics Labored Blood Pressure 116/88 Blood Pressure Mean 97 Pulse Oximetry 92 Oxygen Delivery Method Non-rebreather Non-rebreather Oxygen Flow Rate 15 15 Sepsis Recent Fever Within 48 Hours Yes Sepsis New/Unexplained Change in Mental Status N/A Sepsis Action Taken by Nursing No Action Required Laboratory Data Result diagrams: 12/26/20 00:58 12/26/20 06:47 Lab Results 12/26/20 12/26/20 12/26/20 Range/Units 00:58 00:58 00:58 WBC 10.40 (4.8-10.8) K/uL RBC 3.86 L (4.7-6.1) M/uL Hgb 12.6 L (14.0-18.0) g/dL Hct 39.4 L (42-52) % MCV 102.1 H (80-100) fL MCH 32.6 (25-34) pg MCHC 32.0 (32-36) g/dL RDW Std Deviation 52.6 H (36.4-46.3) fL RDW Coeff of David 14.1 (11.5-14.5) % Plt Count 378 (130-400) K/uL MPV 9.1 (7.4-10.4) fL Immature Gran % (Auto) 0.2 % Neut % (Auto) 77.4 % Lymph % (Auto) 12.2 % Stanton % (Auto) 9.3 % Eos % (Auto) 0.8 % Baso % (Auto) 0.1 % Neut # (Auto) 8.05 H (1.4-6.5) K/uL Lymph # (Auto) 1.27 (1.2-3.4) K/uL Stanton # (Auto) 0.97 H (0.11-0.59) K/uL Eos # (Auto) 0.08 (0-0.5) K/uL Baso # (Auto) 0.01 (0-0.2) K/uL Immature Gran # (Auto) 0.02 (0.00-0.02) K/uL Absolute Nucleated RBC 0.02 H (0-0) K/uL Nucleated RBC % (auto) 0.2 % PT 11.5 (9.0-12.0) Seconds INR 1.1 (0.9-1.1) Sodium 133 L (136-145) mmol/L Potassium 4.5 (3.5-5.1) mmol/L Chloride 95 L (98-107) mmol/L Carbon Dioxide 32 (21-32) mmol/L Anion Gap 6.0 (3-11) BUN 20 H (7-18) mg/dl Creatinine 1.04 (0.6-1.4) mg/dl Est Cr Clr Drug Dosing 81.4 ml/min Est GFR ( Amer) 82.7 ml/min Est GFR (Non-Af Amer) 71.4 ml/min BUN/Creatinine Ratio 18.8 (10-20) Glucose 98 (70-99) mg/dl Calcium 10.3 H (8.5-10.1) mg/dl Magnesium 1.8 (1.8-2.4) mg/dl Total Bilirubin 0.8 (0.2-1) mg/dl Direct Bilirubin 0.4 H (0-0.2) mg/dl AST 21 (15-37) U/L ALT 33 (12-78) U/L Alkaline Phosphatase 178 H (45-117) U/L Troponin I < 0.015 (0-0.045) ng/ml NT-Pro-B Natriuret Pep 3595 H (0-900) pg/ml Total Protein 7.5 (6.4-8.2) gm/dl Albumin 2.6 L (3.4-5.0) gm/dl Lipase 118 (73-393) U/L Urine Color Urine Appearance (Clear) Urine pH (4.5-7.5) Ur Specific [place] (1.000-1.030) Urine Protein (Negative) Urine Glucose (UA) (Negative) Urine Ketones (Negative) Urine Blood (Negative) Urine Nitrite (Negative) Urine Bilirubin (Negative) Urine Urobilinogen (Negative) Ur Leukocyte Esterase (Negative) Urine WBC (Auto) (0-5) /hpf Urine RBC (Auto) (0-4) /hpf U Hyaline Cast (Auto) (0-5) /lpf U Epithel Cells (Auto) (0-5) /lpf Urine Bacteria (Auto) (Negative) Ur Renal Epithelial Cell COVID-19 Eval Order SARS-CoV-2 (PCR) (Negative) 12/26/20 12/26/20 12/26/20 Range/Units 02:20 02:20 02:32 WBC (4.8-10.8) K/uL RBC (4.7-6.1) M/uL Hgb (14.0-18.0) g/dL Hct (42-52) % MCV (80-100) fL MCH (25-34) pg MCHC (32-36) g/dL RDW Std Deviation (36.4-46.3) fL RDW Coeff of David (11.5-14.5) % Plt Count (130-400) K/uL MPV (7.4-10.4) fL Immature Gran % (Auto) % Neut % (Auto) % Lymph % (Auto) % Stanton % (Auto) % Eos % (Auto) % Baso % (Auto) % Neut # (Auto) (1.4-6.5) K/uL Lymph # (Auto) (1.2-3.4) K/uL Stanton # (Auto) (0.11-0.59) K/uL Eos # (Auto) (0-0.5) K/uL Baso # (Auto) (0-0.2) K/uL Immature Gran # (Auto) (0.00-0.02) K/uL Absolute Nucleated RBC (0-0) K/uL Nucleated RBC % (auto) % PT (9.0-12.0) Seconds INR (0.9-1.1) Sodium (136-145) mmol/L Potassium (3.5-5.1) mmol/L Chloride (98-107) mmol/L Carbon Dioxide (21-32) mmol/L Anion Gap (3-11) BUN (7-18) mg/dl Creatinine (0.6-1.4) mg/dl Est Cr Clr Drug Dosing ml/min Est GFR ( Amer) ml/min Est GFR (Non-Af Amer) ml/min BUN/Creatinine Ratio (10-20) Glucose (70-99) mg/dl Calcium (8.5-10.1) mg/dl Magnesium (1.8-2.4) mg/dl Total Bilirubin (0.2-1) mg/dl Direct Bilirubin (0-0.2) mg/dl AST (15-37) U/L ALT (12-78) U/L Alkaline Phosphatase (45-117) U/L Troponin I (0-0.045) ng/ml NT-Pro-B Natriuret Pep (0-900) pg/ml Total Protein (6.4-8.2) gm/dl Albumin (3.4-5.0) gm/dl Lipase (73-393) U/L Urine Color Yellow Urine Appearance Clear (Clear) Urine pH 5.5 (4.5-7.5) Ur Specific [place] 1.012 (1.000-1.030) Urine Protein 2+ H (Negative) Urine Glucose (UA) Negative (Negative) Urine Ketones Negative (Negative) Urine Blood 1+ H (Negative) Urine Nitrite Negative (Negative) Urine Bilirubin Negative (Negative) Urine Urobilinogen Negative (Negative) Ur Leukocyte Esterase Negative (Negative) Urine WBC (Auto) 5-10 H (0-5) /hpf Urine RBC (Auto) 0-4 (0-4) /hpf U Hyaline Cast (Auto) 1-5 (0-5) /lpf U Epithel Cells (Auto) >30 H (0-5) /lpf Urine Bacteria (Auto) Negative (Negative) Ur Renal Epithelial Cell Not Reportable COVID-19 Eval Order Covid19 at [facility] SARS-CoV-2 (PCR) NEGATIVE (Negative) Administered Medications Apixaban (Apixaban 5 Mg Tablet) 5 mg PO BID ILEANA Stop: 01/25/21 08:59 Last Admin: 12/26/20 20:21 Dose: 5 mg Documented by: [id number] Admin: 12/26/20 08:36 Dose: 5 mg Documented by: [id number] Calcium Carbonate (Calcium Carbonate 1250mg Tab) 1,250 mg PO Q24H ILEANA Stop: 01/25/21 16:59 Last Admin: 12/26/20 16:55 Dose: 1,250 mg Documented by: [id number] Fluticasone/Vilanterol (Fluticasone/Vilanterol 200/25mcg 14 Puffs/Inhaler) 1 puffs INH DAILY ILEANA Stop: 01/25/21 08:59 Last Admin: 12/26/20 08:36 Dose: 1 puffs Documented by: [id number] Furosemide 40 mg/ Syringe 4 mls @ 4 mls/min IV DAILY ILEANA Stop: 01/25/21 06:29 Last Admin: 12/26/20 07:24 Dose: 4 mls/min Documented by: [id number] Metoprolol Succinate (Metoprolol Succ 25mg Ext Rel Tab) 25 mg PO QAM ILEANA Stop: 01/25/21 08:59 Last Admin: 12/26/20 08:36 Dose: 25 mg Documented by: [id number] Pantoprazole Sodium (Pantoprazole 40 Mg Tab) 40 mg PO BID ILEANA Stop: 01/25/21 08:59 Last Admin: 12/26/20 20:20 Dose: 40 mg Documented by: [id number] Admin: 12/26/20 08:36 Dose: 40 mg Documented by: [id number] Rosuvastatin Calcium (Rosuvastatin Calcium 20 Mg Tab) 20 mg PO QAM ILEANA Stop: 01/25/21 08:59 Last Admin: 12/26/20 08:36 Dose: 20 mg Documented by: [id number] Tamsulosin HCl (Tamsulosin Hcl 0.4 Mg Cap) 0.4 mg PO ILEANA Stop: 09/28/21 20:59 Last Admin: 12/26/20 20:21 Dose: 0.4 mg Documented by: [id number] Thiamine HCl (Thiamine Hcl 100 Mg Tab) 100 mg PO QAM ILEANA Stop: 01/25/21 08:59 Last Admin: 12/26/20 08:36 Dose: 100 mg Documented by: [id number] Discontinued Medications Albuterol (Albut/Ipratrop 3mg/0.5mg Neb 3 Ml Vial) 3 ml NEB NOW STA Stop: 12/26/20 04:12 Last Admin: 12/26/20 04:26 Dose: 3 ml Documented by: [id number] Furosemide (Furosemide 40 Mg/4 Ml Vial) 40 mg IV NOW STA Stop: 12/26/20 01:59 Last Admin: 12/26/20 02:08 Dose: 40 mg Documented by: [id number] Furosemide 20 mg/ Syringe 2 mls @ 4 mls/min IV ONE ONE Stop: 12/26/20 19:01 Last Admin: 12/26/20 20:19 Dose: 4 mls/min Documented by: [id number] Metoprolol Tartrate (Metoprolol Tartrate 1 Mg/Ml Vial) 5 mg IV NOW STA Stop: 12/26/20 01:33 Last Admin: 12/26/20 02:11 Dose: 5 mg Documented by: [id number] Metoprolol Tartrate (Metoprolol Tartrate 1 Mg/Ml Vial) 5 mg IV NOW STA Stop: 12/26/20 02:03 Last Admin: 12/26/20 03:00 Dose: 5 mg Documented by: [id number] Metoprolol Tartrate (Metoprolol Tartrate 1 Mg/Ml Vial) 5 mg IV NOW STA Stop: 12/26/20 03:18 Last Admin: 12/26/20 03:28 Dose: 5 mg Documented by: [id number] Discharge Plan Visit Data Chief Complaint: Shortness of Breath/Dyspnea Stated Complaint: SHORT OF BREATH ED Provider: Prakash Collins Discharge Problem: Acute hypoxemic respiratory failure, Atrial fibrillation with rapid ventricular response, Congestive heart failure Patient Disposition: Admitted As Inpatient Discharge Instructions Interventions: ED Discharge Assessment Last Done: 12/26/20 05:15 Discharge Problem: Congestive heart failure Qualifiers: Heart failure type: systolic Heart failure chronicity: acute Qualified Code(s): I50.21 - Acute systolic (congestive) heart failure
[2020-12-26 01:40] LABS: Basophils # (auto) 0.01 K/uL (0-0.2); Basophils % (auto) 0.1 %; Eosinophils # (auto) 0.08 K/uL (0-0.5); Eosinophils % (auto) 0.8 %; Hematocrit (blood only) 39.4 % (42-52); Hemoglobin 12.6 g/dL (14.0-18.0); Immature Granulocytes # (auto) 0.02 K/uL (0.00-0.02); Immature Granulocytes % (auto) 0.2 %; Lymphocytes # (auto) 1.27 K/uL (1.2-3.4); Lymphocytes % (auto) 12.2 %; Mean Corpuscular Hemoglobin 32.6 pg (25-34); Mean Corpuscular Volume 102.1 fL (80-100); Mean Platelet Volume 9.1 fL (7.4-10.4); Monocytes # (auto) 0.97 K/uL (0.11-0.59); Monocytes % (auto) 9.3 %; Neutrophils # (auto) 8.05 K/uL (1.4-6.5); Neutrophils % (auto) 77.4 %; Nucleated RBC # (auto) 0.02 K/uL (0-0); Nucleated RBC % (auto) 0.2 %; Platelet Count 378 K/uL (130-400); RDW Coefficient of Variation 14.1 % (11.5-14.5); RDW Standard Deviation 52.6 fL (36.4-46.3); Red Blood Count 3.86 M/uL (4.7-6.1)
[2020-12-26 01:50] LABS: INR 1.1 (0.9-1.1); Prothrombin Time 11.5 Seconds (9.0-12.0)
[2020-12-26 01:54] LABS: Alanine Aminotransferase 33 U/L (12-78); Albumin Level 2.6 gm/dl (3.4-5.0); Aspartate Aminotransferase 21 U/L (15-37); BUN Creatinine Ratio 18.8 (10-20); Bilirubin Direct 0.4 mg/dl (0-0.2); Blood Urea Nitrogen 20 mg/dl (7-18); Calcium 10.3 mg/dl (8.5-10.1); Carbon Dioxide 32 mmol/L (21-32); Chloride 95 mmol/L (98-107); Creatinine Clr Calc Pharmacy 81.4 ml/min; Est GFR (African American) 82.7 ml/min; Est GFR (Non-African American) 71.4 ml/min; Glucose 98 mg/dl (70-99); Lipase 118 U/L (73-393); Magnesium 1.8 mg/dl (1.8-2.4); Potassium 4.5 mmol/L (3.5-5.1); Sodium 133 mmol/L (136-145)
[2020-12-26] MEDS ORDERED: FUROSEMIDE 40 MG/4 ML VIAL IV STA (01:58)
[2020-12-26 01:59] LABS: Alkaline Phosphatase 178 U/L (45-117); Bilirubin,Total 0.8 mg/dl (0.2-1); NT Pro B Type Natriuretic Pept 3595 pg/ml (0-900); Total Protein 7.5 gm/dl (6.4-8.2); Troponin I < 0.015 ng/ml (0-0.045)
[2020-12-26 02:43] LABS: Appearance Urine Clear (Clear); Bacteria Urine Automated Negative (Negative); Bilirubin Urine Negative (Negative); Blood Urine 1+ (Negative); Color Urine Yellow; Epithelial Cell Urine Auto >30 /lpf (0-5); Glucose Urine UA Negative (Negative); Ketones Urine Negative (Negative); Leukocyte Esterase Urine Negative (Negative); Nitrite Urine Negative (Negative); Protein Urine 2+ (Negative); RBC Urine Automated 0-4 /hpf (0-4); Specific Gravity Urine 1.012 (1.000-1.030); Urobilinogen Urine Negative (Negative); pH Urine 5.5 (4.5-7.5)
[2020-12-26] MEDS ORDERED: ALBUT/IPRATROP 3MG/0.5MG NEB 3 ML VIAL NEB STA (04:11)
--- NOTE | 2020-12-26 04:11 | History & Physical Report ---
Date of Service December 26, 2020 Assessment & Plan (1) Chronic respiratory failure with hypoxia: Plan: Patient is a 70 year old male with PMHx COPD, Afib, HTN, HLD who presents with 1 day history of worsening fatigue and shortness of breath. Chronic Respiratory Failure with Hypoxia, suspect secondary to fluid overload -Patient with history of SOB, LE swelling -BMP elevated 3595 on admission -CXR with increased densities b/l, worse on the RLL -Given 40mg Lasix IV in ED, will give another 40mg Lasix IV on admission and continue 40mg daily -Echo in AM -Daily weights -Monitor i/o's -Low salt diet -Repeat BMP in AM to monitor electrolytes while diuresing COPD -Likely contributing to SOB -With current wheezing, will give Duoneb 1x now -Continue home Symbicort -Continue Albuterol PRN -Patient may benefit from nebulizers upon discharge Atrial Fibrillation with RVR -Chronic Afib, rate controlled with Metoprolol and anticoagulated with Eliquis -With RVR while in the ED, suspect multifactorial -Given Lopressor pushes 5mg x3 in ED -Will continue home Metoprolol succinate 25mg QD - may require increase -Lopressor pushes 5mg q5m PRN for sustained HR >130 -Continue Eliquis HTN -Continue Metoprolol HLD -Continue Rosuvastatin GERD -Continue Pantoprazole BPH s/p TURP -continue Flomax Dispo: Med/Surg Telemetry for monitoring of diuresis and constant cardiac monitoring of atrial fibrillation with RVR FEN: HH, low NA diet, Fluid restrict 2L DVT: Eliquis Code: DNR/DNI (2) GERD (gastroesophageal reflux disease): (3) Atrial fibrillation with rapid ventricular response: (4) COPD (chronic obstructive pulmonary disease): (5) Hyperlipidemia: (6) HTN (hypertension): (7) BPH (benign prostatic hyperplasia): (8) Atrial fibrillation: History of Present Illness Chief Complaint: Short of breath Primary Care Provider: Lauren Mcdonald Patient is a 70 year old male with PMHx COPD, Afib, HTN, HLD who presents with 1 day history of worsening fatigue and shortness of breath. Patient was recently admitted from 12/07-12/08/20 for chest pain determined to be GERD in nature. Patient notes that he has been having shortness of breath for awhile now stating that he can barely walk more than 40-50 feet at a time on even ground without becoming short of breath. He states that he was recently resumed on 3L oxygen at home at baseline. He also notes he was supposed to have an Echocardiogram completed next week for his symptoms of SOB. Patient notes that this morning his breathing worsened in addition to feeling fatigued. He states that he did not come in initially as he was hoping it would improve on it's own. [facility] He denies any chest pain, chest pressure, fever, chills, abdominal pain, dysuria, hematuria, diarrhea, headache, dizziness, visual changes. Med Hx: COPD, Afib, HTN, HLD Surg Hx: Appendectomy, Zzlww-Zcdyi-Dpplwty bypass, ORIF R ankle, TURP Soc Hx: Smokes 1.5PPD x50+ years, Drinks 18 beers/week last drink 4 days ago, No illicit drug use Allergies Allergy/AdvReac Type Severity Reaction Status Date / Time No Known Allergies Allergy Verified 12/07/20 07:15 Home Medications Medication Instructions Recorded Confirmed Type albuterol sulfate 90 mcg/actuation 2 puffs INH Q6H PRN 08/19/19 12/07/20 History breath activated powder inhaler apixaban 5 mg tablet (Eliquis) 5 mg PO BID 08/19/19 12/07/20 History budesonide-formoterol HFA 160 2 puffs INH Q12H 08/19/19 12/07/20 History mcg-4.5 mcg/actuation aerosol inhaler (Symbicort) calcium carbonate 600 mg calcium 600 mg PO QPM 09/24/19 12/07/20 History (1,500 mg) tablet (Calcium) tamsulosin 0.4 mg capsule 0.4 mg PO HS cap 10/06/19 12/07/20 History metoprolol succinate 50 mg 25 mg PO QAM 01/08/20 12/07/20 History tablet,extended release 24 hr rosuvastatin 40 mg tablet 20 mg PO QAM 01/08/20 12/07/20 History folic acid 1 mg tablet 1 mg PO QAM #30 tab 12/08/20 Rx pantoprazole 40 mg tablet,delayed 40 mg PO BID #0 tab 12/08/20 12/07/20 Rx release thiamine HCl (vitamin B1) 100 mg 100 mg PO QAM #30 tab 12/08/20 Rx tablet (Vitamin B-1) Past Med/Surg History Medical History (Updated 12/09/20 @ 00:08 by Deion Mcdonald) Anemia Angina at rest Atrial fibrillation on eliquis, follows with [facility] BPH (benign prostatic hyperplasia) Chronic anticoagulation on eliquis daily Chronic respiratory failure with hypoxia COPD exacerbation inhaler daily/prn Diverticulosis Dyspnea on exertion Edema Fall a year & a half ago 2018, bruised a bone right hip GERD (gastroesophageal reflux disease) HTN (hypertension) Hyperlipidemia Lumbar spinal stenosis Mitral regurgitation PAD (peripheral artery disease) Prostate cancer diagnosed 06/2019--currently receiving radiation tx PVD (peripheral vascular disease) Surgical History History of ndmpt-fnryw-vamfvps bypass appx 2015 [facility] History of colonoscopy with polypectomy recent 09/2019 History of esophagogastroduodenoscopy (EGD) recent 09/2019 History of mandibular surgery jaw fx History of open reduction and internal fixation (ORIF) procedure right ankle 1968---hardware in place History of prostate biopsy malignant S/P appendectomy appx 1998 S/P TURP (transurethral resection of prostate) Family History Mother Dementia age 89 Father , age 94 of old age. No problems noted. Brother No problems noted. Brother No problems noted. Daughter No problems noted. 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 Beliefs That Will Affect Care: None marital status: Current Living Situation: Family Current Living Situation Comment: lives at home with daughter current occupational status: retired current occupation: [employer] Feels Safe at Home: Yes Safety Concerns: Feels Safe At This Time Childhood Exposure to Second-Hand Smoke: Yes caffeine: Yes (3 cups of coffee daily) during the past year weight has: remained stable Dental Care, Regularly: No Assistive Devices: Oxygen - Continuous Assistive Devices Comment: patient unsure if he wears CPAP or BiPAP Review of Systems Review of Systems: ROS as noted in subjective Physical Exam Constitutional: + ill appearing, + disheveled and cooperative; not intoxicated appearing, not diaphoretic and not lethargic Eyes: PERRL, conjunctivae normal, anicteric sclerae ENMT: external ear and nose normal, oropharynx normal Neck: trachea midline, no thyromegaly Respiratory: normal respiratory effort (on 15L Non-rebreather), + cough and able to speak in complete sentences; no labored breathing, no retractions, not tachypneic, no grunting, no nasal flaring and no stridor Auscultation: + crackles (at bases b/l, worse on R ) and + wheezes (throughout ) Cardiovascular: Rate/Rhythm: + irregularly irregular Heart Sounds: normal S1 and normal S2; no murmur Extremities: + edema (+1 to knees b/l ); no calf tenderness Gastrointestinal (Abdomen): normal bowel sounds, soft, nontender, no hepatosplenomegaly Musculoskeletal: no cyanosis or clubbing, extremities motor strength 5/5 Skin: no rashes, warm and dry Neurologic: PERRL, EOMI, accommodation nl, no face palsy, no dysarthria moves all extremities and awake; not confused and not obtunded Psychiatric: A+Ox3, euthymic affect Results & Data Results & Data ([facility]) Vital Signs (Past 12 Hours) Vital Signs Temp Pulse Pulse Pulse Resp BP BP 12/26/20 03:28 107 H 109/77 12/26/20 03:03 113 H 126/67 12/26/20 03:01 108 H 31 H 123/62 12/26/20 03:00 113 H 126/67 12/26/20 02:11 132 H 126/82 12/26/20 02:06 128 H 126/82 12/26/20 02:00 131 H 22 131/78 12/26/20 01:18 37.0 C 124 H 24 116/88 Pulse Ox 12/26/20 03:28 12/26/20 03:03 95 12/26/20 03:01 94 12/26/20 03:00 12/26/20 02:11 12/26/20 02:06 96 12/26/20 02:00 95 12/26/20 01:18 92 Laboratory Results Laboratory Results - last 24 hr 12/26/20 12/26/20 12/26/20 00:58 00:58 00:58 WBC 10.40 RBC 3.86 L Hgb 12.6 L Hct 39.4 L MCV 102.1 H MCH 32.6 MCHC 32.0 RDW Std Deviation 52.6 H RDW Coeff of David 14.1 Plt Count 378 MPV 9.1 Immature Gran % (Auto) 0.2 Neut % (Auto) 77.4 Lymph % (Auto) 12.2 [place] % (Auto) 9.3 Eos % (Auto) 0.8 Baso % (Auto) 0.1 Neut # (Auto) 8.05 H Lymph # (Auto) 1.27 [place] # (Auto) 0.97 H Eos # (Auto) 0.08 Baso # (Auto) 0.01 Immature Gran # (Auto) 0.02 Absolute Nucleated RBC 0.02 H Nucleated RBC % (auto) 0.2 PT 11.5 INR 1.1 Sodium 133 L Potassium 4.5 Chloride 95 L Carbon Dioxide 32 Anion Gap 6.0 BUN 20 H Creatinine 1.04 Est Cr Clr Drug Dosing 81.4 Est GFR ( Amer) 82.7 Est GFR (Non-Af Amer) 71.4 BUN/Creatinine Ratio 18.8 Glucose 98 Calcium 10.3 H Magnesium 1.8 Total Bilirubin 0.8 Direct Bilirubin 0.4 H AST 21 ALT 33 Alkaline Phosphatase 178 H Troponin I < 0.015 NT-Pro-B Natriuret Pep 3595 H Total Protein 7.5 Albumin 2.6 L Lipase 118 Urine Color Urine Appearance Urine pH Ur Specific [place] Urine Protein Urine Glucose (UA) Urine Ketones Urine Blood Urine Nitrite Urine Bilirubin Urine Urobilinogen Ur Leukocyte Esterase Urine WBC (Auto) Urine RBC (Auto) U Hyaline Cast (Auto) U Epithel Cells (Auto) Urine Bacteria (Auto) Ur Renal Epithelial Cell COVID-19 Eval Order SARS-CoV-2 (PCR) 12/26/20 12/26/20 12/26/20 02:20 02:20 02:32 WBC RBC Hgb Hct MCV MCH MCHC RDW Std Deviation RDW Coeff of David Plt Count MPV Immature Gran % (Auto) Neut % (Auto) Lymph % (Auto) [place] % (Auto) Eos % (Auto) Baso % (Auto) Neut # (Auto) Lymph # (Auto) [place] # (Auto) Eos # (Auto) Baso # (Auto) Immature Gran # (Auto) Absolute Nucleated RBC Nucleated RBC % (auto) PT INR Sodium Potassium Chloride Carbon Dioxide Anion Gap BUN Creatinine Est Cr Clr Drug Dosing Est GFR ( Amer) Est GFR (Non-Af Amer) BUN/Creatinine Ratio Glucose Calcium Magnesium Total Bilirubin Direct Bilirubin AST ALT Alkaline Phosphatase Troponin I NT-Pro-B Natriuret Pep Total Protein Albumin Lipase Urine Color Yellow Urine Appearance Clear Urine pH 5.5 Ur Specific [place] 1.012 Urine Protein 2+ H Urine Glucose (UA) Negative Urine Ketones Negative Urine Blood 1+ H Urine Nitrite Negative Urine Bilirubin Negative Urine Urobilinogen Negative Ur Leukocyte Esterase Negative Urine WBC (Auto) 5-10 H Urine RBC (Auto) 0-4 U Hyaline Cast (Auto) 1-5 U Epithel Cells (Auto) >30 H Urine Bacteria (Auto) Negative Ur Renal Epithelial Cell Not Reportable COVID-19 Eval Order Covid19 at [facility] SARS-CoV-2 (PCR) NEGATIVE Supervising Physician Co-Signing Physician Notes Attending addendum: I have physically seen this patient, have supervised the medical residents activities, and agree with the H&P unless as otherwise noted. Assessment and Plan: Acute on chronic respiratory failure with hypoxia/CHF/COPD exacerbation- CHF exacerbation/atrial fibrillation with RVR/hypertension- Given Lasix 40 mg IV in ED. Give Lasix 40 mg IV every morning Given Lopressor 5 mg IV x3 in ED with improved rate control Metoprolol succinate 25 mg p.o. daily, may be increased to 50 mg in the a.m. Lopressor 5 mg IV every 4 hours as needed heart rate greater than 110 Continue Eliquis COPD exacerbation- Duonebs every 4 hours while awake and every 2 hours when necessary. Continue Symbicort Recommend Pulmicort Respules 0.5 mg inhaled twice daily, and DuoNebs upon every 4 hours as needed, upon discharge Remaining orders and notations as noted Resident Activity Tracking Resident Involvement: Resident Care Provided Care Provided: Adult Hospital Medicine (1) Atrial fibrillation Atrial fibrillation type: unspecified Qualified Code(s): I48.91 - Unspecified atrial fibrillation
[2020-12-26] MEDS ORDERED: FUROSEMIDE 40 MG/4 ML VIAL IV SCH (04:24)
[2020-12-26] MEDS ORDERED: ONDANSETRON INJ 2 MG/ML 2 ML VIAL IV PRN (05:49)
[2020-12-26] MEDS ORDERED: METOPROLOL TARTRATE 1 MG/ML VIAL IV PRN (05:49)
[2020-12-26] MEDS ORDERED: ALBUTEROL HFA 8 GM INHALER INH PRN (06:11)
[2020-12-26] MEDS: FUROSEMIDE 40 MG in SYRINGE 0 ML IV SCH (07:24)
--- NOTE | 2020-12-26 08:11 | XRay Report ---
XR chest 1V portable HISTORY: Shortness of breath. COMPARISON: 12/07/2020. FINDINGS: No pneumothorax. Mild interstitial pulmonary edema and bilateral pleural effusions. Bibasil ar densities are also unchanged and favor atelectasis from the pleural effusions. The heart remains e nlarged. IMPRESSION: Cardiomegaly with mild interstitial pulmonary edema and bilateral pleural effusions. ACT 112: Negative or not required by law. Electronically signed by: Patrick Painter M.D. 12/26/2020 8:09 AM
[2020-12-26 08:15] LABS: BUN Creatinine Ratio 18.7 (10-20); Calcium 10.6 mg/dl (8.5-10.1); Creatinine Clr Calc Pharmacy 77.7 ml/min; Potassium 4.1 mmol/L (3.5-5.1)
[2020-12-26] MEDS: FLUTICASONE/VILANTEROL 200/25MCG 14 PUFFS/INHALER INH SCH (08:36)
[2020-12-26] MEDS: APIXABAN 5 MG TABLET PO SCH ×2 (08:36→20:21)
[2020-12-26] MEDS: ROSUVASTATIN CALCIUM 20 MG TAB PO SCH (08:36)
[2020-12-26] MEDS: THIAMINE HCL 100 MG TAB PO SCH (08:36)
[2020-12-26] MEDS: PANTOprazole 40 MG TAB PO SCH ×2 (08:36→20:20)
[2020-12-26] MEDS: METOPROLOL SUCC 25MG EXT REL TAB PO SCH (08:36)
[2020-12-26 09:20] LABS: Folate (Folic Acid) 16.8 ng/ml (>5.38)
--- NOTE | 2020-12-26 11:02 | Hospitalist Progress Note ---
Date of Service December 26, 2020 Assessment & Plan (1) Chronic respiratory failure with hypoxia: Plan: Patient is a 70 year old male with PMHx COPD, Afib, HTN, HLD who presents with 1 day history of worsening fatigue and shortness of breath. Acute on chronic hypoxic respiratory failure Acute congestion heart failure -Patient with known history of COPD and 3L baseline O2 requirement; over the last several weeks, reporting worsening shortness of breath in general and with exertion -Upon arrival to the ED, did require 15 L via nonrebreather to maintain saturations >92% -Work-up as follows: -BMP elevated 3595 on admission -CXR any cardiomegaly, interstitial pulmonary edema, and bilateral pleural effusions -COVID-19 swab negative -Extremely responsive to multiple doses of Lasix IV -Suspect respiratory failure likely secondary to volume overload, possibly due to new onset congestive heart failure (in individual with significant CAD). Likely also component of COPD. -Patient certainly at higher risk for obstructive sleep apnea given body habitus; recommend outpatient sleep study upon discharge -Lasix 40 mg IV every morning, can increase to 60-80mg IV as needed / as renal function permits -Await echocardiography -Daily weights, I&O's -Low-salt diet -Monitor electrolytes in setting of ongoing diuresis COPD -Likely contributing to SOB -s/p Duoneb x 1 in the ED -- can give additional doses p.r.n. -Continue home Symbicort -Continue Albuterol PRN Atrial Fibrillation with RVR -- Resolved -Chronic Afib, rate controlled with Metoprolol and anticoagulated with Eliquis -RVR appreciated while in ED was likely secondary to acute on chronic respiratory failure -Now resolved status post Lopressor X3 in ED and diuresis -Will continue home Metoprolol succinate 25mg QD -Lopressor pushes 5mg q5m PRN for sustained HR >130 -Continue Eliquis HTN -Continue Metoprolol HLD -Continue Rosuvastatin GERD -Continue Pantoprazole BPH s/p TURP -continue Flomax Dispo: Med/Surg Telemetry for monitoring of diuresis and constant cardiac monitoring of atrial fibrillation with RVR FEN: HH, low NA diet, Fluid restrict 2L DVT: Eliquis Code: DNR/DNI (2) GERD (gastroesophageal reflux disease): (3) Atrial fibrillation with rapid ventricular response: (4) COPD (chronic obstructive pulmonary disease): (5) Hyperlipidemia: (6) HTN (hypertension): (7) BPH (benign prostatic hyperplasia): (8) Atrial fibrillation: Admission and Anticipated Discharge Date Admission Date: December 26, 2020 Supervising Physician Co-Signing Physician Notes Resident Physician Supervision Note: I independently interviewed and examined the patient and verified the ann history and physical, reviewed labs and image studies and agree with resident Dr. Shin findings and care plan. Subjective No acute events overnight. Patient seen the bedside this morning, reports feeling notably better compared to when he came in last night. Says that while breathing is still difficult, it is with much more ease he is able to take deep breaths. Does not have as much trouble speaking either. We did review the course of illness that presented him to the hospital -I have no further additio ns at this time. He denies any fevers, chills, night sweats. Says he has an intermittent cough which has been somewhat worse lately. He denies loss of appetite. Denies nausea or vomiting. Denies chest pain or palpitations. Review of Systems Review of Systems: As per HPI Physical Exam Physical Exam: General: Appearing 70-year-old gentleman who is sitting back in his hospital bed upon my arrival. He converses freely, with conversational dyspnea. Voice is raspy. No acute distress. HEENT: NCAT. Mouth - MMM with no tonsillar edema or exudates. Cardiac: Normal rate, irregular rhythm. S1 and S2 are present without significant murmurs rubs or gallops. Jugular venous pulse is appreciated approximately 3 fingerbreadths above the right clavicle, positive hepatojugular reflex. Pulmonary: Mildly increased respiratory effort with symmetric expansion of the chest. No use of accessory muscles. Nasal cannula in place. Intermittent conversational dyspnea appreciated. Patient does have intermittent crackles heard best at the right base, but also notable on the left. No significant wheezes today. Diminished lung sounds throughout. Abdominal: Normoactive bowel sounds. Abdomen was soft, nondistended, and non- tender to palpation. Extremities: Upper and lower extremities are warm and well perfused. Radial and dorsalis pedis pulses were 2+ b/l. Capillary refill assessed in UE was < 3 sec. Psych: Well-developed, well-nourished, appropriately dressed for occasion. Behavior is cooperative and appropriate. Affect is WNL. Insight is appropriate. Results & Data Results & Data ([facility]) Vital Signs (Past 12 Hours) Vital Signs Temp Pulse Pulse Pulse Resp BP BP 12/26/20 08:00 36.6 C 84 22 151/80 H 12/26/20 07:23 151/91 H 12/26/20 06:11 36.6 C 103 H 22 130/80 12/26/20 04:31 102 H 24 146/90 H 12/26/20 04:29 90 22 12/26/20 03:28 107 H 109/77 12/26/20 03:03 113 H 126/67 12/26/20 03:01 108 H 31 H 123/62 12/26/20 03:00 113 H 126/67 12/26/20 02:11 132 H 126/82 12/26/20 02:06 128 H 126/82 12/26/20 02:00 131 H 22 131/78 12/26/20 01:18 37.0 C 124 H 24 116/88 Pulse Ox 12/26/20 08:00 93 12/26/20 07:23 12/26/20 06:11 91 12/26/20 04:31 91 12/26/20 04:29 96 12/26/20 03:28 12/26/20 03:03 95 12/26/20 03:01 94 12/26/20 03:00 12/26/20 02:11 12/26/20 02:06 96 12/26/20 02:00 95 12/26/20 01:18 92 Resident Activity Tracking Resident Involvement: Resident Care Provided Care Provided: Adult Hospital Medicine (1) Atrial fibrillation Atrial fibrillation type: unspecified Qualified Code(s): I48.91 - Unspecified atrial fibrillation
--- NOTE | 2020-12-26 15:17 | XCELERA ---
[id number]
[2020-12-26] MEDS: CALCIUM CARBONATE 1250MG TAB PO SCH (16:55)
[2020-12-26] MEDS ORDERED: FUROSEMIDE 20 MG in SYRINGE 0 ML IV ONE (19:00)
--- NOTE | 2020-12-26 19:27 | Billing Data ---
Date of Service December 26, 2020 Coding Level of Care Code 90705 Initial Inpt Care Lvl 3
[2020-12-26] MEDS: TAMSULOSIN HCL 0.4 MG CAP PO SCH (20:21)
--- NOTE | 2020-12-27 06:03 | Electrocardiogram Report ---
Test Reason : Blood Pressure : / mmHG Vent. Rate : 120 BPM Atrial Rate : 111 BPM P-R Int : 000 ms QRS Dur : 084 ms QT Int : 248 ms P-R-T Axes : 000 060 006 degrees QTc Int : 350 ms Atrial fibrillation with rapid ventricular response Low voltage QRS Abnormal ECG When compared with ECG of 07-DEC-2020 05:30, No significant change was found Confirmed by Tommy Hernandez ([id number]) on 12/27/2020 6:03:28 AM Referred By: REFERRED SELF Confirmed By:Tommy Hernandez
[2020-12-27 08:09] LABS: BUN Creatinine Ratio 27.9 (10-20); Calcium 10.6 mg/dl (8.5-10.1); Creatinine Clr Calc Pharmacy 87.2 ml/min; Est GFR (African American) 92.3 ml/min; Est GFR (Non-African American) 79.7 ml/min
[2020-12-27] MEDS: THIAMINE HCL 100 MG TAB PO SCH (08:18)
[2020-12-27] MEDS: FUROSEMIDE 40 MG in SYRINGE 0 ML IV SCH (08:18)
[2020-12-27] MEDS: PANTOprazole 40 MG TAB PO SCH ×2 (08:18→20:40)
[2020-12-27] MEDS: APIXABAN 5 MG TABLET PO SCH ×2 (08:18→20:40)
[2020-12-27] MEDS: METOPROLOL SUCC 25MG EXT REL TAB PO SCH (08:18)
[2020-12-27] MEDS: ROSUVASTATIN CALCIUM 20 MG TAB PO SCH (08:18)
[2020-12-27] MEDS: FLUTICASONE/VILANTEROL 200/25MCG 14 PUFFS/INHALER INH SCH (08:19)
--- NOTE | 2020-12-27 10:08 | Hospitalist Progress Note ---
Date of Service December 27, 2020 Assessment & Plan (1) Chronic respiratory failure with hypoxia: Plan: Patient is a 70 year old male with COPD, Afib, HTN, HLD who presents with 1 day history of worsening fatigue and shortness of breath. [id number] hypoxic respiratory failure, CHF exacerbation Patient with known history of COPD and 3L baseline O2 requirement; over the last several weeks, reporting worsening shortness of breath in general and with exertion Upon arrival to the ED, did require 15L via nonrebreather to maintain saturations >92% Work-up as follows: BMP elevated 3595 on admission CXR any cardiomegaly, interstitial pulmonary edema, and bilateral pleural effusions COVID-19 swab negative Extremely responsive to multiple doses of lasix IV Suspect respiratory failure likely secondary to volume overload, possibly due to new onset congestive heart failure (in individual with significant CAD); likely also component of COPD Echo findings below; new findings compared to prior echo (02/2019) in bold: EF 55-60%, no wall motion abnormalities, moderate concentric LVH, normal LV function Mildly dilated RV with mildly reduced systolic function Biatrial dilation; sclerotic aortic valve without significant stenosis Gvwsa-by-jcidfqxe pericardial effusion without evidence of tamponade physiology Moderate pulmonary hypertension Patient high risk for ARIADNE given body habitus; recommend outpatient sleep study upon discharge Lasix 40mg IV qAM, can increase to 60-80mg IV as needed Daily weights, I&O's Low-salt diet Monitor electrolytes in setting of ongoing diuresis Pericardial effusion New finding on echo, no evidence of tamponade physiology as above Likely related to CHF; however, patient has 10-speu-xptv smoking history; chest CT in 2019 notable for mediastinal lymphadenopathy, differential includes malignancy Anticipate resolution with treatment of CHF; will consider repeat echo Cardiology consulted COPD Likely contributing to SOB Received duoneb x1 in ED, can give additional doses as needed Continue home symbicort Continue albuterol as-needed Added tiotropium bromide Atrial fibrillation with RVR Chronic atrial fibrillation, rate controlled with metoprolol and antic oagulated with eliquis RVR appreciated while in ED was likely secondary to uszla-oh-[id number] respiratory failure; resolved s/p lopressor x3 in ED, diuresis Continue home metoprolol succinate 25mg qd Lopressor pushes 5mg q5m PRN for sustained tachycardia above 130 Continue eliquis HTN Well-controlled at this time Continue home metoprolol HLD Continue rosuvastatin GERD Continue pantoprazole BPH s/p TURP Asymptomatic at this time Continue flomax FEN: heart healthy, low sodium diet, fluid restriction to 2L Code status: DNR/DNI DVT ppx: edgar PT/OT: ordered Dispo: med/surg telemetry (2) GERD (gastroesophageal reflux disease): (3) Atrial fibrillation with rapid ventricular response: (4) COPD (chronic obstructive pulmonary disease): (5) Hyperlipidemia: (6) HTN (hypertension): (7) BPH (benign prostatic hyperplasia): (8) Atrial fibrillation: Admission and Anticipated Discharge Date Admission Date: December 26, 2020 Supervising Physician Co-Signing Physician Notes I personally examined the patient and verified all ann points of history and exam, discussed case, and agree with decision making with Dr Espinosa Feeling better, breathing better. Has a hard time gauging how his breathing is feeling now compared to earlier today, but notes that he definitely feels much better than when he came in. When asked to compare his breathing to a typical day may be in the last month or 2, he notes that he feels more or less at his baseline. 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 Vitals noted, in general he is awake and alert pleasant no distress. HEENT normocephalic atraumatic mucous membranes moist. Breathing unlabored no accessory muscle use good effort. Skin shows no rashes no pallor or icterus. Neuro shows no focal deficits. Acute on chronic hypoxic respiratory failurepredominantly due to acute HFpEF (see below), but also has COPD and pulmonary hypertension. Acute HFpEFappears to have LVH, likely acute fluid overload from sodium mediated fluid retention from cured meats. Educated on sodium restriction and the importance of so doing as it relates to CHF, discussed this in the context of a new diagnosis. We will try to help facilitate outpatient follow-up. Appears to be improvingwe will continue to follow into tomorrow, but if he is back to more or less his baseline of breathing, hopefully home tomorrow. Pericardial effusionwithout tamponade I doubt it is playing a role in his CHF, but etiology is not clear. Will ask cardiology for opinion. COPDdoes not appear to be on any anticholinergic inhaleradding this. Discussed. Pulmonary hypertensionalmost certainly relates to CHF and COPD, but also could easily have underlying OHSwould ask that he get set up for a sleep study after discharge. Otherwise as above, hopefully home tomorrow. Subjective Patient seen and evaluated at bedside this morning. No acute events overnight. Patient feels well today and reports his breathing has significantly improved compared to yesterday. No complaints at this time. Patient denies CP, abdominal pain, nausea, vomiting, lightheadedness, dizziness, and diarrhea. Review of Systems Review of Systems: See HPI Physical Exam Physical Exam: Constitutional: well-appearing, no acute distress CV: tachycardic, irregular rhythm, no murmur appreciated, extremities well- perfused, no LE edema Resp: CTABL, no crackles appreciated, no increased work of breathing Neuro: AOx4, no focal neurological deficits appreciated Results & Data Results & Data ([facility]) Vital Signs (Past 12 Hours) Vital Signs Temp Pulse Pulse Pulse Resp BP Pulse Ox 12/27/20 07:56 36.6 C 100 H 19 115/79 96 12/27/20 07:00 100 H 12/27/20 04:00 36.5 C 115 H 18 137/76 92 12/27/20 00:08 112 H 12/26/20 23:00 36.7 C 100 H 18 150/91 H 90 Resident Activity Tracking Resident Involvement: Resident Care Provided Care Provided: Adult Hospital Medicine (1) Atrial fibrillation Atrial fibrillation type: unspecified Qualified Code(s): I48.91 - Unspecified atrial fibrillation
[2020-12-27] MEDS: CALCIUM CARBONATE 1250MG TAB PO SCH (17:50)
--- NOTE | 2020-12-27 17:51 | Billing Data ---
Date of Service December 27, 2020 Coding Level of Care Code 47161 Subseq Hosp Care Lvl 3
[2020-12-27] MEDS: TAMSULOSIN HCL 0.4 MG CAP PO SCH (20:40)
--- NOTE | 2020-12-28 06:56 | Hospitalist Progress Note ---
Date of Service December 28, 2020 Assessment & Plan (1) Chronic respiratory failure with hypoxia: Plan: Patient is a 70 year old male with COPD, Afib, HTN, HLD who presents with 1 day history of worsening fatigue and shortness of breath. Eknjj-ub-[id number] hypoxic respiratory failure, CHF exacerbation Patient with known history of COPD and 3L baseline O2 requirement; over the last several weeks, reporting worsening shortness of breath in general and with exertion Upon arrival to the ED, did require 15L via nonrebreather to maintain saturations >92% Work-up as follows: BMP elevated 3595 on admission CXR any cardiomegaly, interstitial pulmonary edema, and bilateral pleural effusions COVID-19 swab negative Extremely responsive to multiple doses of lasix IV Suspect respiratory failure likely secondary to volume overload, possibly due to new onset congestive heart failure (in individual with significant CAD); likely also component of COPD Echo findings below; new findings compared to prior echo (02/2019) in bold: EF 55-60%, no wall motion abnormalities, moderate concentric LVH, normal LV function Mildly dilated RV with mildly reduced systolic function Biatrial dilation; sclerotic aortic valve without significant stenosis Hsyxu-db-lgarzphg pericardial effusion without evidence of tamponade physiology Moderate pulmonary hypertension Patient high risk for ARIADNE given body habitus; recommend outpatient sleep study upon discharge Lasix 40mg IV qAM, can increase to 60-80mg IV as needed Daily weights, I&O's Low-salt diet Monitor electrolytes in setting of ongoing diuresis Pericardial effusion New finding on echo, no evidence of tamponade physiology as above Likely related to CHF; however, patient has 52-hqdw-ricl smoking history; chest CT in 2019 notable for mediastinal lymphadenopathy, differential includes malignancy Anticipate resolution with treatment of CHF; will consider repeat echo Cardiology consulted COPD Likely contributing to SOB Received duoneb x1 in ED, can give additional doses as needed Continue home symbicort Continue albuterol as-needed Added tiotropium bromide Atrial fibrillation with RVR Chronic atrial fibrillation, rate controlled with metoprolol and antic oagulated with eliquis RVR appreciated while in ED was likely secondary to hszqb-oq-[id number] respiratory failure; resolved s/p lopressor x3 in ED, diuresis Continue home metoprolol succinate 25mg qd Lopressor pushes 5mg q5m PRN for sustained tachycardia above 130 Continue eliquis HTN Well-controlled at this time Continue home metoprolol HLD Continue rosuvastatin GERD Continue pantoprazole BPH s/p TURP Asymptomatic at this time Continue flomax FEN: heart healthy, low sodium diet, fluid restriction to 2L Code status: DNR/DNI DVT ppx: edgar PT/OT: ordered Dispo: med/surg telemetry (2) GERD (gastroesophageal reflux disease): (3) Atrial fibrillation with rapid ventricular response: (4) COPD (chronic obstructive pulmonary disease): (5) Hyperlipidemia: (6) HTN (hypertension): (7) BPH (benign prostatic hyperplasia): (8) Atrial fibrillation: Admission and Anticipated Discharge Date Admission Date: December 26, 2020 Review of Systems Review of Systems: See HPI Physical Exam Physical Exam: Constitutional: well-appearing, no acute distress CV: tachycardic, irregular rhythm, no murmur appreciated, extremities well- perfused, no LE edema Resp: CTABL, no crackles appreciated, no increased work of breathing Neuro: AOx4, no focal neurological deficits appreciated Results & Data Results & Data ([facility]) Vital Signs (Past 12 Hours) Vital Signs Temp Pulse Pulse Resp BP Pulse Ox 12/28/20 03:59 36.6 C 101 H 20 119/73 90 12/27/20 23:39 120 H 12/27/20 23:30 36.4 C L 127 H 20 127/75 90 12/27/20 19:40 36.6 C 105 H 18 120/71 91 (1) Atrial fibrillation Atrial fibrillation type: unspecified Qualified Code(s): I48.91 - Unspecified atrial fibrillation
[2020-12-28 06:57] LABS: Hematocrit (blood only) 41.9 % (42-52); Hemoglobin 13.6 g/dL (14.0-18.0); Mean Corpuscular Hemoglobin 32.3 pg (25-34); Mean Corpuscular Hgb Conc 32.5 g/dL (32-36); Mean Corpuscular Volume 99.5 fL (80-100); Mean Platelet Volume 8.8 fL (7.4-10.4); Platelet Count 355 K/uL (130-400); RDW Coefficient of Variation 14.1 % (11.5-14.5); RDW Standard Deviation 50.6 fL (36.4-46.3); Red Blood Count 4.21 M/uL (4.7-6.1); White Blood Count 11.05 K/uL (4.8-10.8)
[2020-12-28 07:22] LABS: Basophils # (auto) 0.01 K/uL (0-0.2); Basophils % (auto) 0.1 %; Eosinophils # (auto) 0.11 K/uL (0-0.5); Immature Granulocytes # (auto) 0.03 K/uL (0.00-0.02); Immature Granulocytes % (auto) 0.3 %; Lymphocytes # (auto) 1.73 K/uL (1.2-3.4); Lymphocytes % (auto) 15.7 %; Monocytes # (auto) 0.73 K/uL (0.11-0.59); Monocytes % (auto) 6.6 %; Neutrophils # (auto) 8.44 K/uL (1.4-6.5); Neutrophils % (auto) 76.3 %
[2020-12-28 07:40] LABS: BUN Creatinine Ratio 29.5 (10-20); Calcium 10.1 mg/dl (8.5-10.1); Est GFR (African American) 85.7 ml/min; Potassium 3.4 mmol/L (3.5-5.1)
[2020-12-28] MEDS: FUROSEMIDE 40 MG in SYRINGE 0 ML IV SCH (08:40)
[2020-12-28] MEDS: APIXABAN 5 MG TABLET PO SCH (08:40)
[2020-12-28] MEDS: PANTOprazole 40 MG TAB PO SCH (08:40)
[2020-12-28] MEDS: THIAMINE HCL 100 MG TAB PO SCH (08:41)
[2020-12-28] MEDS: FLUTICASONE/VILANTEROL 200/25MCG 14 PUFFS/INHALER INH SCH (08:41)
[2020-12-28] MEDS: ROSUVASTATIN CALCIUM 20 MG TAB PO SCH (08:41)
[2020-12-28] MEDS: METOPROLOL SUCC 25MG EXT REL TAB PO SCH (08:41)
[2020-12-28] MEDS ORDERED: UMECLIDINIUM BROMIDE 62.5MCG/BLISTER 7 PUFFS/INHALER INH SCH (09:00)
[2020-12-28] MEDS ORDERED: POTASSIUM CHLORIDE 10 MEQ TABCR PO SCH (09:30)
--- NOTE | 2020-12-28 10:11 | Cardiology Consultation ---
Date of Consultation December 28, 2020 Assessment & Plan (1) Acute heart failure with preserved ejection fraction (HFpEF): (2) Pericardial effusion: (3) Atrial fibrillation, permanent: (4) HTN (hypertension): (5) Hyperlipidemia: (6) Pulmonary hypertension: (7) Tobacco abuse: ASSESSMENT/PLAN: 1. Acute heart failure with preserved EF: He does not appear to be significantly hypervolemic on examination. Excessive sodium consumption likely playing a role. Recommended no more than 2000 mg of sodium per day. Recommended daily weights and he believes he will be able to do this. On discharge, would recommend oral diuretic with close monitoring of his renal function and also clinical follow-up. Lasix 20 or 40 mg once daily with close follow-up appears reasonable. Recommend BMP in the next 2-3 days with new outpatient diuretic. He is interested in Heart failure program if it is covered by the [facility] and he has met with Dilcia Huertas today. [facility]. 2. Permanent atrial fibrillation: Appears to be asymptomatic. Heart rate on telemetry still a bit tachycardic . Recommend increasing metoprolol succinate to 50 mg daily. Continue anticoagulation for stroke risk reduction. 3. Pericardial effusion: Does not appear to be hemodynamically relevant at this time. Would recommend follow-up imaging. If he is being discharged today, he can be seen by his primary boat loader to help arrange outpatient echo to monitor for change in effusion. If he is going to be hospitalized for the next few days, could check an echo prior to discharge. 4. Hypertension: Blood pressure acceptable. Adjusting beta-tristan as above. 5. Peripheral arterial disease s/p bilateral aortofemoral bypass: Has chronic claudication. Continue high-intensity statin therapy. He follows with the [facility]. 6. Tobacco abuse: Recommended that he stop smoking. He states that he quit smoking upon this admission. Also recommended that he reduce his alcohol consumption. 7. Pulmonary hypertension: Likely multifactorial. He has COPD and was also hypervolemic at the time of his echo. This can be monitored as an outpatient with repeat echo imaging to evaluate for improvement following diuresis. 8. Disposition: Follow-up with his [facility] within 1 week. Dilcia Huertas of the Heart failure program will check with the [facility] to see if they will allow him to follow-up with her post discharge. Patient care communicated with primary hospitalist service. Thank you for allowing me to participate in the care of your patient. Please call for any other questions or concerns. Sincerely, Jasvir Hernandez M.D. History of Present Illness Reason for Consultation: "Pericardial effusion, new onset CHF" Requesting Physician: Manuel Espinosa Attending Physician: Gael Sawant, DO History of Present Illness Mr. Kam is a very pleasant 70-year-old gentleman with a history significant for atrial fibrillation, peripheral arterial disease status post bilateral aortofemoral bypass (2015 [facility]), hypertension, dyslipidemia, and presumed COPD. He follows with the [facility]. He was admitted on 12/26/2020 with chronic respiratory failure and hypoxia, felt to be diastolic CHF with also contribution from COPD. He was noted to be in atrial fibrillation with rapid ventricular response as well. He has been given intravenous diuretics and his net negative fluid balance is 2 L negative. He has had the following studies/procedures: 1. Bilateral aortofemoral bypass 2015 [facility]. 2. Echo 04/26/2019 [facility] [place]: Normal LV size with mildly reduced systolic function. EF 45-50%. Mild MR. 3. Echo 12/26/2020 [facility]: Normal LV size, wall motion, systolic function. EF 55-60%. Moderate concentric LVH. Mildly dilated RV with mildly reduced systolic function. Biatrial dilation. Sclerotic aortic valve. Small to moderate circumferential pericardial effusion without echocardiographic evidence of tamponade physiology. RVSP 56. Aortic root 4.6 cm. He states that he became more acutely short of breath 1 day prior to presentation. His shortness of breath was with exertion. He denies orthopnea. He does not use supplemental oxygen at home but feels comfortable with that here. He denies any swelling but states that he has been told by several other medical staff that his legs were swollen but they have improved with diuresis. He has lightheadedness if he changes positions quickly from a seated to a st anding position, more chronically. He denies syncope, chest pain, palpitations, melena, hematochezia, hematuria, or other bleeding. He states that his breathing is back to baseline. He admits that he consumes food high in sodium content and also add salt to his food. He does not weigh himself at home. He has not been diagnosed with heart failure in the past. He does not use diuretic therapy as an outpatient. He continues to have bilateral lower extremity claudication walking 25-50 yd. Symptoms occur even more quickly if he tries to walk on an incline. His left leg is a bit worse than his right. This has been a chronic issue. Review of systems: As above. Review of systems otherwise negative/unremarkable. Family history: No known premature CAD. Social history: Smokes approximately 0.5 pack of cigarettes per day and has smoked up to 2 packs per day. He has smoked for over 50 years. He consumes 4-5 beers per day, 2 days per week. He lives with his daughter. He is . He also has a son. He has grandchildren. 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 He served in the [employer]. Allergies Allergy/AdvReac Type Severity Reaction Status Date / Time No Known Allergies Allergy Verified 12/07/20 07:15 Home Medications Medication Instructions Recorded Confirmed Type albuterol sulfate 90 mcg/actuation 2 puffs INH Q6H PRN 08/19/19 12/07/20 History breath activated powder inhaler apixaban 5 mg tablet (Eliquis) 5 mg PO BID 08/19/19 12/07/20 History budesonide-formoterol HFA 160 2 puffs INH Q12H 08/19/19 12/07/20 History mcg-4.5 mcg/actuation aerosol inhaler (Symbicort) calcium carbonate 600 mg calcium 600 mg PO QPM 09/24/19 12/07/20 History (1,500 mg) tablet (Calcium) tamsulosin 0.4 mg capsule 0.4 mg PO HS cap 10/06/19 12/07/20 History metoprolol succinate 50 mg 25 mg PO QAM 01/08/20 12/07/20 History tablet,extended release 24 hr rosuvastatin 40 mg tablet 20 mg PO QAM 01/08/20 12/07/20 History folic acid 1 mg tablet 1 mg PO QAM #30 tab 12/08/20 Rx pantoprazole 40 mg tablet,delayed 40 mg PO BID #0 tab 12/08/20 12/07/20 Rx release thiamine HCl (vitamin B1) 100 mg 100 mg PO QAM #30 tab 12/08/20 Rx tablet (Vitamin B-1) furosemide 40 mg tablet 40 mg PO DAILY 14 Days #14 tab 12/28/20 Rx metoprolol succinate 50 mg 50 mg PO DAILY #30 tab 12/28/20 Rx tablet,extended release 24 hr potassium chloride 20 mEq 20 meq PO BID 30 Days #60 tab 12/28/20 Rx tablet,extended release tiotropium bromide 18 mcg capsule 1 cap INHALATION DAILY #30 inh 12/28/20 Rx with inhalation device Patient History Medical History (Updated 12/28/20 @ 13:27 by Tommy Hernandez MD) Anemia Angina at rest Atrial fibrillation on eliquis, follows with [facility] BPH (benign prostatic hyperplasia) Chronic anticoagulation on eliquis daily Chronic respiratory failure with hypoxia COPD exacerbation inhaler daily/prn Diverticulosis Dyspnea on exertion Edema Fall a year & a half ago 2018, bruised a bone right hip GERD (gastroesophageal reflux disease) HTN (hypertension) Hyperlipidemia Lumbar spinal stenosis Mitral regurgitation PAD (peripheral artery disease) Prostate cancer diagnosed 06/2019--currently receiving radiation tx PVD (peripheral vascular disease) Surgical History History of sptte-[id number]-[id number] bypass appx 2015 [facility] History of colonoscopy with polypectomy recent 09/2019 History of esophagogastroduodenoscopy (EGD) recent 09/2019 History of mandibular surgery jaw fx History of open reduction and internal fixation (ORIF) procedure right ankle 1968---hardware in place History of prostate biopsy malignant S/P appendectomy appx 1998 S/P TURP (transurethral resection of prostate) Family History Mother Dementia age 89 Father , age 94 of old age. No problems noted. Brother No problems noted. Brother No problems noted. Daughter No problems noted. 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 Tender Required: No Beliefs That Will Affect Care: None marital status: Current Living Situation: Family Current Living Situation Comment: lives at home with daughter current occupational status: retired current occupation: [employer] Feels Safe at Home: Yes Safety Concerns: Feels Safe At This Time Childhood Exposure to Second-Hand Smoke: Yes caffeine: Yes (3 cups of coffee daily) during the past year weight has: remained stable Dental Care, Regularly: No Assistive Devices: Cane and Oxygen - Continuous Assistive Devices Comment: patient unsure if he wears CPAP or BiPAP Physical Exam Physical Exam: Gen.: No acute distress. Alert. HEENT: Anicteric sclera. Neck: No JVD. No bruits. Normal carotid upstrokes bilaterally. Cardiac: PMI was nonpalpable. No ventricular heave. Irregularly irregular. Normal S1-S2. No murmurs, rubs, or gallops. Pulmonary: Crackles at the left base, otherwise clear to auscultation bilaterally. Decreased breath sounds throughout. Abdomen: Soft, nontender, nondistended, with normoactive bowel sounds. No bruits noted. Extremities: 2+ radial pulses bilaterally. 2+ posterior tibialis pulses bilaterally. Trace bilateral lower extremity edema. No cyanosis. Psychiatric: Affect appears appropriate. Results & Data ([facility]) Vital Signs (Past 12 Hours) Vital Signs Temp Pulse Pulse Resp BP BP Pulse Ox 12/28/20 07:33 36.6 C 76 16 120/81 94 12/28/20 03:59 36.6 C 101 H 20 119/73 90 12/27/20 23:39 120 H 12/27/20 23:30 36.4 C L 127 H 20 127/75 90 Intake & Output 12/26/20 12/27/20 12/28/20 12/29/20 06:59 06:59 06:59 06:59 Intake Total 600 / 600 480 / 480 Output Total 825 / 825 2100 / 2100 150 / 150 Balance -825 / -825 -1500 / -1500 330 / 330 Weight 243 lb 9.773 oz 242 lb 1.081 oz 242 lb 1.081 oz Laboratory Results Laboratory Results - last 24 hr 08/31/21 08/31/21 06:40 06:40 WBC 11.05 H RBC 4.21 L Hgb 13.6 L Hct 41.9 L MCV 99.5 MCH 32.3 MCHC 32.5 RDW Std Deviation 50.6 H RDW Coeff of David 14.1 Plt Count 355 MPV 8.8 Immature Gran % (Auto) 0.3 Neut % (Auto) 76.3 Lymph % (Auto) 15.7 [place] % (Auto) 6.6 Eos % (Auto) 1.0 Baso % (Auto) 0.1 Neut # (Auto) 8.44 H Lymph # (Auto) 1.73 [place] # (Auto) 0.73 H Eos # (Auto) 0.11 Baso # (Auto) 0.01 Immature Gran # (Auto) 0.03 H Sodium 135 L Potassium 3.4 L Chloride 91 L Carbon Dioxide 43 H* Anion Gap 1.0 L BUN 30 H Creatinine 1.01 Est Cr Clr Drug Dosing 82.0 Est GFR ( Amer) 85.7 Est GFR (Non-Af Amer) 74.0 BUN/Creatinine Ratio 29.5 H Glucose 92 Calcium 10.1 Diagnostic Findings ECG personally reviewed: ECG 12/26/2020: Atrial fibrillation with rapid ventricular response 120 beats per minute. Echo 12/26/2020 reviewed as noted above in HPI. Chest x-ray 12/26/2020: Mild interstitial pulmonary edema and bilateral pleural effusions per Radiology. Images personally reviewed. Left pleural effusion appears larger than right. Telemetry personally reviewed: Atrial fibrillation. Heart rate has remained mildly tachycardic on average. Medications Administered Current Inpatient Medications Albuterol (Albuterol Hfa 8 Gm Inhaler) 2 puffs INH Q6H PRN PRN Reason: Shortness Of Breath Stop: 01/25/21 06:10 Apixaban (Apixaban 5 Mg Tablet) 5 mg PO BID ILEANA Stop: 01/25/21 08:59 Last Admin: 12/28/20 08:40 Dose: 5 mg Documented by: Calcium Carbonate (Calcium Carbonate 1250mg Tab) 1,250 mg PO Q24H ILEANA Stop: 01/25/21 16:59 Last Admin: 12/27/20 17:50 Dose: Not Given Documented by: Fluticasone/Vilanterol (Fluticasone/Vilanterol 200/25mcg 14 Puffs/Inhaler) 1 puffs INH DAILY [facility] Stop: 01/25/21 08:59 Last Admin: 12/28/20 08:41 Dose: 1 puffs Documented by: Furosemide 40 mg/ Syringe 4 mls @ 4 mls/min IV DAILY ILEANA Stop: 01/25/21 06:29 Last Admin: 12/28/20 08:40 Dose: 4 mls/min Documented by: Metoprolol Succinate (Metoprolol Succ 25mg Ext Rel Tab) 25 mg PO QAM [facility] Stop: 01/25/21 08:59 Last Admin: 12/28/20 08:41 Dose: 25 mg Documented by: Metoprolol Tartrate (Metoprolol Tartrate 1 Mg/Ml Vial) 5 mg IV Q5M PRN PRN Reason: Tachycardia HR>130 sustained Stop: 01/25/21 05:48 Ondansetron HCl (Ondansetron Inj 2 Mg/Ml 2 Ml Vial) 4 mg IV Q6H PRN PRN Reason: Nausea Stop: 01/25/21 05:48 Pantoprazole Sodium (Pantoprazole 40 Mg Tab) 40 mg PO BID [facility] Stop: 01/25/21 08:59 Last Admin: 12/28/20 08:40 Dose: 40 mg Documented by: Potassium Chloride (Potassium Chloride 10 Meq Tabcr) 10 meq PO BID [facility] Stop: 01/27/21 09:29 Rosuvastatin Calcium (Rosuvastatin Calcium 20 Mg Tab) 20 mg PO QAM [facility] Stop: 01/25/21 08:59 Last Admin: 12/28/20 08:41 Dose: 20 mg Documented by: Tamsulosin HCl (Tamsulosin Hcl 0.4 Mg Cap) 0.4 mg PO HS [facility] Stop: 01/25/21 20:59 Last Admin: 12/27/20 20:40 Dose: 0.4 mg Documented by: Thiamine HCl (Thiamine Hcl 100 Mg Tab) 100 mg PO QAM [facility] Stop: 01/25/21 08:59 Last Admin: 12/28/20 08:41 Dose: 100 mg Documented by: Umeclidinium [place] (Umeclidinium [place] 62.5mcg/Blister 7 Puffs/Inhaler) 1 puffs INH QAM [facility]; Protocol Stop: 01/27/21 08:59 Last Admin: 12/28/20 08:41 Dose: 1 puffs Documented by: PG Care Time/CCT Total # of Minutes Spent Total Time Spent with Patient: Total time spent is greater than 50% in coordination of care (as documented) at patient's floor/unit and/or counseling patient: Coding Level of Care Code 68632 Initial Inpt Care Lvl 3 Diagnoses Acute heart failure with preserved ejection fraction (HFpEF) I50.31 Atrial fibrillation, permanent I48.21 HTN (hypertension) I10 Hyperlipidemia E78.5 Pericardial effusion I31.3 Pulmonary hypertension I27.20 Tobacco abuse Z72.0
[2020-12-28] MEDS ORDERED: POTASSIUM CHLORIDE CRTAB 20 MEQ TABCR PO STA (10:53)
[2020-12-28 11:20] VITALS: PULSE 72; TEMP 98.8; O2SAT 92
[2020-12-28 14:29] VITALS: BP 119/73
--- NOTE | 2020-12-28 17:52 | Discharge Summary ---
Date of Service December 28, 2020 Admission HPI Per Admitting Provider Patient is a 70 year old male with PMHx COPD, Afib, HTN, HLD who presents with 1 day history of worsening fatigue and shortness of breath. Patient was recently admitted from 12/07-12/08/20 for chest pain determined to be GERD in nature. Patient notes that he has been having shortness of breath for awhile now stating that he can barely walk more than 40-50 feet at a time on even ground without becoming short of breath. He states that he was recently resumed on 3L oxygen at home at baseline. He also notes he was supposed to have an Echocardiogram completed next week for his symptoms of SOB. Patient notes that this morning his breathing worsened in addition to feeling fatigued. He states that he did not come in initially as he was hoping it would improve on it's own. [facility] He denies any chest pain, chest pressure, fever, chills, abdominal pain, dysuria, hematuria, diarrhea, headache, dizziness, visual changes. Med Hx: COPD, Afib, HTN, HLD Surg Hx: Appendectomy, Rnmhe-Smtmn-Ottjnqk bypass, ORIF R ankle, TURP Soc Hx: Smokes 1.5PPD x50+ years, Drinks 18 beers/week last drink 4 days ago, No illicit drug use Admission Exam Per Admitting Provider Constitutional: + ill appearing, + disheveled and cooperative; not intoxicated appearing, not diaphoretic and not lethargic Eyes: PERRL, conjunctivae normal, anicteric sclerae ENMT: external ear and nose normal, oropharynx normal Neck: trachea midline, no thyromegaly Respiratory: normal respiratory effort (on 15L Non-rebreather), + cough and able to speak in complete sentences; no labored breathing, no retractions, not tachypneic, no grunting, no nasal flaring and no stridor Auscultation: + crackles (at bases b/l, worse on R ) and + wheezes (throughout ) Cardiovascular: Rate/Rhythm: + irregularly irregular Heart Sounds: normal S1 and normal S2; no murmur Extremities: + edema (+1 to knees b/l ); no calf tenderness Gastrointestinal (Abdomen): normal bowel sounds, soft, nontender, no hepatosplenomegaly Musculoskeletal: no cyanosis or clubbing, extremities motor strength 5/5 Skin: no rashes, warm and dry Neurologic: PERRL, EOMI, accommodation nl, no face palsy, no dysarthria moves all extremities and awake; not confused and not obtunded Psychiatric: A+Ox3, euthymic affect Principal Diagnosis Ztfsi-jj-ymxjanq respiratory failure secondary to CHF exacerbation Discharge Exam Constitutional: well-appearing, no acute distress CV: tachycardic, irregular rhythm, no murmur appreciated, extremities well- perfused, no LE edema Resp: CTABL, no crackles appreciated, no increased work of breathing Neuro: AOx4, no focal neurological deficits appreciated Discharge Data Allergies Allergy/AdvReac Type Severity Reaction Status Date / Time No Known Allergies Allergy Verified 12/07/20 07:15 Consultations 12/26/20 03:33 ED Decision to Admit Stat 12/27/20 15:36 Consult Cardiology Routine Hospital Course (1) Chronic respiratory failure with hypoxia: Cqbvf-jz-gumauic hypoxic respiratory failure, CHF exacerbation Upon arrival to the ED, patient required 15L via nonrebreather to maintain adequate oxygen saturation. Patient was found with pulmonary edema and other signs of fluid overload. Patient responded very well to diuresis with lasix, and patient's oxygen requirement trended towards his baseline requirement of 3L. Echo was performed and found an EF of 55-60%, mildly reduced RV systolic function, a dodzr-rz-xsgwegfw pericardial effusion without evidence of tamponade physiology (below), and moderate pulmonary hypertension. Further history- gathering revealed a recent increase in patient's sodium intake; patient did not previously carry a diagnosis of CHF, and had been unaware that this could lead to fluid overload. Patient was counseled on the pathophysiology of CHF, and demonstrated good understanding of our recommended lifestyle modifications. Patient was discharged on hospital day three in stable condition. Patient was hemodynamically stable for the entirety of this hospitalization. Patient was discharged with lasix 40mg PO daily, potassium chloride 20mEq twice daily. Patient was instructed to follow up with PCP within one week, and was instructed to have a BMP drawn three days after discharge, prior to PCP follow-up. In consideration of patient's hypoxia, an outpatient sleep study is recommended. Pericardial effusion As noted above, patient was noted to have a kysng-lb-ctmuznce pericardial effusion without evidence of tamponade physiology on echocardiography. This was felt to be likely related to CHF. However, patient's 30-cwpp-hfhl smoking history was noted, and review of patient's chest CT from 2019 revealed mediastinal lymphadenopathy at that time. Given these risk factors, malignancy was on the differential. Cardiology was consulted and felt no immediate intervention was necessary. Cardiology recommended repeat echocardiography to demonstrate resolution of the pericardial effusion. Follow-up with OR Cardiology is recommended. COPD Patient's history of COPD was noted on admission, and patient's home regimen was continued. Patient's home inhaler regimen did not include an anticholinergic, and so tiotropium bromide was added while in-hospital, and was continued upon discharge. PCP follow-up is recommended. Atrial fibrillation with RVR In the ED, patient was noted to be in atrial fibrillation with RVR, likely secondary to meivc-tv-xjxmzbq respiratory failure. Patient's home eliquis was continued. Patient's RVR resolved with diuresis and IV lopressor. Upon resolution of RVR, patient's home metoprolol was continued. PCP follow-up was recommended. HTN Patient's BP was well-controlled during this hospitalization, and patient's home regimen was continued. HLD Patient's home rosuvastatin was continued during this hospitalization. GERD Patient's home pantoprazole was continued during this hospitalization. BPH s/p TURP Patient's home finasteride was continued during this hospitalization. (2) GERD (gastroesophageal reflux disease): (3) Atrial fibrillation with rapid ventricular response: (4) COPD (chronic obstructive pulmonary disease): (5) Hyperlipidemia: (6) HTN (hypertension): (7) BPH (benign prostatic hyperplasia): (8) Atrial fibrillation: Total Time Total Time Spent Total Time Spent (In Minutes): <30 Discharge Plan Discharge Items Patient Disposition: Home - Self-Care Reason For Visit: SOB Discharge Diagnosis: CHF exacerbation Activity: Resume your previous activity Non-emergency contact: Primary Care Provider Call non-emergency contact if: your symptoms worsen Follow-up/Referrals: Filament Maker at the OR [Other] (repeat echo, heart failure program set up, lasix managment) Dilcia Huertas PA-C [Physician Beater And Pulper Feeder] - 01/05/21 10:30 am (Congestive Heart Failure Program Appointment Information Early follow up is essential to managing your heart failure. An appointment has been scheduled for you with the [facility] within 7 days of discharge. Anticipate this visit to be 30-60 minutes long. Please expect a hand welt butter phone call from one of our nurses approximately 48 hours from discharge. They will also be placing an order for lab work to be completed 1-2 days prior to your heart failure follow up appointment. Please be sure to have this done so we can go over the results when you come in. Office Location The cardiology office building is located in front of the hospital at [address]. Bring the following with you to your follow-up doctor appointments: Please bring your daily weight log any discharge paperwork all of your medication bottles with you to this visit. ) Lauren Mcdonald PA-C [Primary Care Provider] - (The OR would like you to call them once you get discharged to set up an appointment with the clinic.) Diet: Regular Ambulatory Orders: Basic Metabolic Panel (Routine) Timeframe: 3 Days Location: Determined by Patient Ordered By: Manuel Burch Attending Provider Instructions: Congestive Heart Failure essentially means your heart is able to have a "traffic jam" of fluid that backs up into your lungs. Fluid in lungs then blocks up breathing space making you feel short of breath. In the hospital, our job is to get the fluid off so that you are able to breathe better, and then get you back on track with medication and lifestyle adjustments to keep the traffic jam from happening again. Pericardial Effusion - while you were in the hospital, a small swelling (effusion) around the heart was noted. We consulted cardiology during your stay, who recommend you follow-up with a camp cook at the OR regarding this finding. You will need to have a repeat echocardiogram (ultrasound of your heart). L Follow-up appointments: Make a follow-up appointment with your PCP within the next week. It is very important that you follow up with them shortly after discharge from the hospital. We have provided you with a paper prescription for blood work that should be performed on Sunday (December 31). Take this paper prescription to your doctor on Sunday to have blood drawn. Your doctor will use the results to help decide if any of your medications need to be adjusted. We would like [facility] to send you to see a camp cook. Keep all your follow-up appointments as already scheduled. If you cannot make an appointment, notify your provider. Medications: Your medication list has been reviewed and reconciled upon discharge to ensure accuracy and continuity of care. An updated list of all your medications is included with your hospital discharge paperwork. Please review this list closely, and make note of any changes. * We sent a new medication called furosemide (Lasix) to your pharmacy. Take furosemide (40mg) one tablet daily. * We sent a new medication called potassium chloride to your pharmacy. Take potassium chloride (20mEq) one tablet twice daily. * We sent a new inhaler called tiotropium bromide to your pharmacy. Take tiotropium bromide one inhalation once daily. * We increased your beta tristan (metoprolol) dose from 25mg every morning to 50mg every morning. A new script for this dose was sent to your pharmacy. Take your medications as instructed; do not skip a dose of your medicines. Make sure all of your doctors know every medicine you are taking (including ddcb-onm-ghujwan medicines, vitamins, and supplements). Call your primary care provider before taking any new medicines (including ijvz-fyv-ivigbpb medicines, vitamins, and supplements), because some of these may interact with your current medications, or may make your symptoms worse. Tell your primary care provider if you cannot afford your medications. Salt (Sodium) The vast majority of people admitted to the hospital with fluid back up into the lungs get there because of too much salt in their diet. The way our kidneys work: when you take a small amount of sodium, your kidneys hold onto a small amount of water. When you take a large amount of sodium, your kidneys hold onto a large amount of water. When this happens, your blood vessels get flooded, your heart gets overfilled, and the fluid backs up into your lungs. Most people know to avoid the salt shaker, but sodium is in almost anything prepackaged/prepared, as a preservative or as a flavoring agent. Most of the people we take care of who are here with congestive heart failure caused by too much sodium do not use a salt shaker at all. Get into the habit of looking at food labels, so you can see how much sodium is in the foods you eat. The most important number to look at is how much sodium is in each serving. But also notice the size of a serving. [employer] will frequently make a serving size so tiny that it does not look like there is much sodium per serving, but a normal person might eat 3 or 4 servings of the food and take in a lot more sodium than they realized. Keep a "budget" of how much sodium you take in in each day. Most people stay out of trouble and stay out of the hospital as long as they stay "under budget". The majority of congestive heart failure patients do well if they take less than 2000 mg of sodium a day. Because our kidneys retain water based on how much sodium they are seeing in any given moment, it is also important to stay at less than about 500 mg in any given meal. This is because even if you stayed at less than 2000 mg of sodium, but ate it all at once, your kidneys would retain fluid at a rate as though you are taking in much more sodium than you actually are. Occasionally your doctor may specifically recommend restricting even further (such as less than 1500mg per day) so if you have been told to be even stricter with sodium, please follow that advice. -Following How You Are Doing (Wet Versus Dry) Because managing congestive heart failure is an ongoing process, it is very important to learn how to follow your signs and symptoms and track how you are doing at home. This will allow you to catch problems before they become a big deal. In general, as your health care team, we look at managing congestive heart failure chronically as a balance of being "wet" (flooded with fluid) versus being "dry" (dehydrated from treatment). Wet - signs of fluid retention that would warrant further evaluation: Check your weight daily: If your weight goes up by more than 2 pounds in 1 day, it is almost certainly fluid related. This should warrant further thought, and/or a call to your doctor Follow your breathing: most of the time, early on when fluid backs up into your lungs, you will first start to notice shortness of breath when walking, or when lying flat. If you notice either of these, this should warrant further thought, and/or a call to your doctor If you notice both an increase in weight and worsening breathing, that definitely warrants getting seen as soon as possible "Dry"while the goal of managing the disease is to keep you from getting "wet, the medications can sometimes cause a degree of dehydration. Most people with congestive heart failure need frequent lab work (basic metabolic panel). Generally when there has been a change in diuretic dosing (a change in the water pill) or any other major changes, lab work should be followed closely and more frequently afterwards. This is because lab work will frequently show early signs of dehydration before you start to feel bad. Frequent symptoms of being dehydrated include: feeling weak and lightheaded, having lower blood pressures, making less urine than usual, or having a very dry mouth. If you notice any of these signs/symptoms, and you are not due for lab work, it would be quite reasonable to call your doctor to see if lab work or a visit could be arranged. Heart Failure Management Checklist: Limit Salt (Sodium) Intake to 2000mg (2g) per day and 500mg (0.5g) per meal Check weight daily (in same clothes, without shoes) every morning Use the provided chart to enter your weight and salt intake for the day Are you too wet? If you gained 2lb or more - make sure to take your water pill If your breathing is not good (you are more short of breath than usual) call your doctor regardless of weight change If you gained 2lb or more and you are short of breath, see your doctor or come to the emergency room Are you too dry? If you feel weak or lightheaded, have lower blood pressures, make less urine than usual, or have a very dry mouth. Call your doctor Pending Studies at Discharge: No Stand-Alone Forms: My [employer], Smoking Cessation Medications and DC Order Prescriptions: New furosemide 40 mg tablet 40 mg PO DAILY 14 Days Qty: 14 RF: 0 potassium chloride 20 mEq tablet extended release 20 meq PO BID 30 Days Qty: 60 RF: 0 tiotropium bromide 18 mcg capsule, w/inhalation device 1 cap inhalation DAILY Qty: 30 RF: 0 metoprolol succinate 50 mg tablet extended release 24 hr 50 mg PO DAILY Qty: 30 RF: 0 Continued tamsulosin 0.4 mg capsule 0.4 mg PO HS RF: 0 albuterol sulfate 90 mcg/actuation aerosol powdr breath activated 2 puffs INH Q6H PRN (Reason: Shortness Of Breath) RF: 0 budesonide-formoterol [Symbicort] 160-4.5 mcg/actuation HFA aerosol inhaler 2 puffs INH Q12H RF: 0 Eliquis 5 mg tablet 5 mg PO BID RF: 0 rosuvastatin 40 mg Tablet 20 mg PO QAM RF: 0 calcium carbonate [Calcium 600] 600 mg calcium (1,500 mg) Tablet 600 mg PO QPM RF: 0 folic acid 1 mg Tablet 1 mg PO QAM Qty: 30 RF: 0 thiamine HCl (vitamin B1) [Vitamin B-1] 100 mg Tablet 100 mg PO QAM Qty: 30 RF: 0 pantoprazole 40 mg Tablet,Delayed Release (Dr/Ec) 40 mg PO BID Qty: 0 RF: 0 Discontinued metoprolol succinate 50 mg Tablet Extended Release 24 Hr 25 mg PO QAM RF: 0 Discharge Orders: Discharge Order (Routine); Ordered 12/28/20 Ordered By: Areli Larson Admission Data Admit Date/Time: 12/26/20 04:24 Attending Provider: Gael Sawant Admit Provider: Carlos Manuel Pang Primary Care Provider: Lauren Mcdonald Other Providers: Kamar Betnley ; Agata Jefferson ; [facility] ; Tommy Hernandez Other Interventions: Discharge Summary Assessment (RN) Last Done: 12/28/20 14:28 Supervising Physician Co-Signing Physician Notes I personally examined the patient and verified all ann points of history and exam, discussed case, and agree with decision making with Dr Espinosa feeling better breathing better feels up to going home, understands situation well. Vitals noted, in general he is awake and alert pleasant no distress. HEENT normocephalic atraumatic mucous membranes moist. Breathing unlabored no accessory muscle use good effort. Skin shows no rashes no pallor or icterus. Neuro shows no focal deficits. Acute on chronic hypoxic respiratory failurepredominantly due to acute HFpEF (see below), but also has COPD and pulmonary hypertension. Improved. Acute HFpEFappears to have LVH, was likely acute fluid overload from sodium mediated fluid retention from cured meats. Educated on sodium restriction and the importance of so doing as it relates to CHF, discussed this in the context of a new diagnosis. Expresses good understanding of this. Will be changing diet. Appears safe/stable for homefor now 40 mg Lasix p.o.discussed with patient this will be a little bit "open ended" depending on how he does with breathing/fluid retention/follow-up labs, and sodium restrictionwith the idea being that it is possible he may not permanently need diuretics. Close follow- up in this regard. Would definitely appreciate follow-up with the CHF clinic Pericardial effusionwithout tamponade I doubt it is playing a role in his CHF, but etiology is not clear. Appreciate cardiology inputoutpatient follow-up COPDdoes not appear to be on any anticholinergic inhaleradding this. Discussed on 12/27. Pulmonary hypertensionalmost certainly relates to CHF and COPD, but also could easily have underlying OHSwould ask that he get set up for a sleep study after discharge. Otherwise as above, stable for home Resident Activity Tracking Resident Involvement: Resident Care Provided Care Provided: Adult Hospital Medicine
--- NOTE | 2020-12-28 18:49 | Billing Data ---
Date of Service December 28, 2020 Coding Level of Care Code D/C DAY MANAGEMENT <30 MINS
== END 2020-12-28 14:52 | disposition home or self-care (01) | DRG 291 ==
LOC: ED 01:15 → SUATTDRO 04:24 → 2W 04:24